=== PATIENT | male | born 1940 | race Caucasian/White ===

== ENCOUNTER 2018-05-10 07:20 | Day surgery (SDC) | payer MEDICARE, OTHER, SELFPAY ==
[2018-05-10] MEDS: PROPARACAINE 0.5% OPHTH SOL 2 DROPS EYE-OP (07:34)
[2018-05-10 07:35] VITALS: BP 129/66; PULSE 69; RESP 16; TEMP 36; O2SAT 99; BMI 23.0
[2018-05-10] MEDS: CATARACT EYE COMPOUND (10 DROPS/SYRINGE) 3 DROPS EYE-OP (07:39)
--- NOTE | 2018-05-10 08:54 | PM.PREOP ---
Pre-operative Note Interval Note Pre-op Check: History & Physical Reviewed by Physician
[2018-05-10] MEDS: TRIAMCINOLONE 50 MG/5 ML VIAL INJ (08:57)
[2018-05-10] MEDS: CHONDROIDTIN/SOD HYALURONATE 1.05 ML SYRINGE INTRAOCULA (08:57)
[2018-05-10] MEDS: LIDOCAINE JELLY 2% 5 ML 1 APPLIC TOP (08:58)
[2018-05-10] MEDS: MOXIFLOXACIN OPHTH DROPS 3 ML BOTTLE 2 DROPS INJ (08:59)
[2018-05-10] MEDS: TETRACAINE 0.5% OPHTH DROPS 15 ML 2 DROPS EYE-RIGHT (08:59)
[2018-05-10] MEDS: PHENYLEPHRINE/LIDOCAINE 3ML VIAL (OR) EYE-OP (09:00)
[2018-05-10] MEDS: BALANCED SALT IRRIG SOLN NO.2 500 ML, EPINEPHrine 1 MG IRR (09:01)
--- NOTE | 2018-05-10 09:10 | P.OP_ITS ---
Operative Date/Time/Diagnoses - Pre-op diagnosis: Cataract Right eye Post-op diagnosis: same Procedure & Clinicians Procedure: Cataract Surgery Same procedure as scheduled: Yes Surgeon: Arpan Welch Anesthesia Type: MAC +/- and Sedation Operative Notes Procedure in detail: Patient brought to the operating suite. Tetracaine drops placed in the right eye. Patient was prepped and draped in sterile manner. Wire lid speculum was placed in the eye. Betadine drops were placed on the eye. This was irrigated. Lidocaine jelly was placed on the eye. A paracentesis port was created with a side-port blade. 0.1 mL 1% preservative free lidocaine was injected into the anterior chamber. The anterior chamber was deepened with viscoelastic. 2.6 mm keratome was used to create a temporal clear corneal incision. Cystotome and Utrata forceps were used to create continuous tear capsulorrhexis. Balanced salt solution was used to hydro dissect the nucleus. The phacoemulsification handpiece was inserted and the nucleus was removed using the stop and chop technique. The irrigation aspiration handpiece was inserted and the remaining cortex was removed. Anterior chamber was deepened with viscoelastic. An Barker ZCB00 intraocular lens with a power of 18.0 was injected into the capsular bag. Irrigation aspiration handpiece was inserted and the remaining viscoelastic was removed. Incision was hydrated with balanced salt solution and found to be leak free with pressure with Weck- Dodie sponges. 0.1 mL Vigamox injected anterior chamber. 0.3 mL Kenalog 10 mg was injected subconjunctivally. Lid speculum was removed. The patient left the operating room in excellent condition. Complications: none Condition: stable Disposition: same day surgery
[2018-05-10 09:14] VITALS: BP 112/64; PULSE 60; RESP 16; TEMP 36.4; O2SAT 97
== END 2018-05-10 09:22 ==
LOC: OR 07:21
PROVIDERS: Family Provider Family Medicine; PCP Family Medicine; Visit Provider Ophthalmology
DX: H25.11 Age-related nuclear cataract, right eye (principal)
CPT/HCPCS: J0171; J2250; J3010; J3301

== ENCOUNTER → 2018-06-06 07:19 | Outpatient (CLI) | payer MEDICARE, OTHER, SELFPAY ==
[2018-06-06 09:22] LABS: Add Manual Diff / Slide Review NO; Basophils Percent Auto 1.2 % (0-2); Eosinophils Percent Auto 6.9 % (2-4); Hematocrit 40.5 % (41-53); Hemoglobin 13.7 g/dL (13.5-17.5); Lymphocytes Percent Auto 31.8 % (25-40); Mean Corpuscular HGB Conc 33.8 % (30-36); Mean Corpuscular Volume 94.8 fL (80-100); Monocytes Percent Auto 7.8 % (3-14); Neutrophils Absolute Auto 3500 /uL (3000-5900); Neutrophils Percent Auto 52.3 % (50-75); Platelet Count 269 X10^3/uL (150-400); Red Blood Cell Count 4.27 X10^6/uL (4.5-5.9); White Blood Cell Count 6.6 X10^3/uL (4.5-11.0)
[2018-06-06 09:52] LABS: Alanine Aminotransferase 29 IU/L (21-72); Albumin 3.8 g/dL (3.5-5.0); Albumin Globulin Ratio 1.4 (1.0-2.8); Alkaline Phosphatase 69 U/L (38-126); Aspartate Aminotransferase 24 IU/L (17-59); BUN Creatinine Ratio 17.3 (6-22); Bilirubin Total 0.6 mg/dL (0.2-1.3); Blood Urea Nitrogen 19 mg/dL (9-20); Calcium 9.2 mg/dL (8.4-10.2); Carbon Dioxide 29 mmol/L (22-32); Chloride 104 mmol/L (98-107); Cholesterol 233 mg/dL (140-199); Estimated Glomerular Filt Rate > 60.0 mL/min (>60); Globulin 2.8 g/dL (1.7-4.1); Glucose 96 mg/dL (80-110); HDL Cholesterol 63 mg/dL (40-60); HEMOLYSIS < 15 (0-50); LDL Cholesterol Calculated 149 mg/dL (<100); Potassium 4.4 mmol/L (3.4-5.1); Sodium 141 mmol/L (137-145); Total Protein 6.6 g/dL (6.3-8.2); Triglycerides 107 mg/dL (35-150)
== END ==
PROVIDERS: PCP Family Medicine; Visit Provider Family Medicine
DX: E78.5 Hyperlipidemia, unspecified (principal); Z12.5 Encounter for screening for malignant neoplasm of prostate; Z91.89 Other specified personal risk factors, not elsewhere classified
CPT/HCPCS: 36415; 80053; 80061; 84153; 85025

== ENCOUNTER 2018-07-19 10:15 | Day surgery (SDC) | payer MEDICARE, OTHER, SELFPAY ==
[2018-07-19] MEDS: PROPARACAINE 0.5% OPHTH SOL 2 DROPS EYE-OP (11:30)
[2018-07-19] MEDS: CATARACT EYE COMPOUND (10 DROPS/SYRINGE) 3 DROPS EYE-OP (11:35)
[2018-07-19 11:39] VITALS: BP 124/60; PULSE 65; RESP 18; TEMP 36.4; O2SAT 99; BMI 23.4
--- NOTE | 2018-07-19 12:26 | P.OP_ITS ---
Operative Date/Time/Diagnoses Pre-op diagnosis: Cataract Left eye Post-op diagnosis: same Procedure & Clinicians Surgeon: Arpan Welch Anesthesia Type: MAC +/- and Sedation Operative Notes Procedure in detail: Patient brought to the operating suite. Tetracaine drops placed in the left eye. Patient was prepped and draped in sterile manner. Wire lid speculum was placed in the eye. Betadine drops were placed on the eye. This was irrigated. Lidocaine jelly was placed on the eye. A paracentesis port was created with a side-port blade. 0.1 mL 1% preservative free lidocaine was injected into the anterior chamber. The anterior chamber was deepened with viscoelastic. 2.6 mm keratome was used to create a temporal clear corneal incision. Cystotome and Utrata forceps were used to create continuous tear capsulorrhexis. Balanced salt solution was used to hydro dissect the nucleus. The phacoemulsification handpiece was inserted and the nucleus was removed using the stop and chop technique. The irrigation aspiration handpiece was inserted and the remaining cortex was removed. Anterior chamber was deepened with viscoelastic. An Barker ZCB00 intraocular lens with a power of 17.5 was injected into the capsular bag. Irrigation aspiration handpiece was inserted and the remaining viscoelastic was removed. Incision was hydrated with balanced salt solution and found to be leak free with pressure with Weck- Dodie sponges. 0.1 mL Vigamox injected anterior chamber. 0.3 mL Kenalog 10 mg was injected subconjunctivally. Lid speculum was removed. The patient left the operating room in excellent condition. Complications: none Condition: stable Disposition: same day surgery
--- NOTE | 2018-07-19 12:26 | P.OP.PRE_ITS ---
Pre-operative Note Interval Note Changes: No
--- NOTE | 2018-07-19 12:26 | PM.PREOP ---
Pre-operative Note Interval Note Changes: No
--- NOTE | 2018-07-19 12:35 | SUR.OPER ---
Supine on eye stretcher, head on extension cradle secured with tape. Arms tucked at sides with blanket. Pillow under knees.
[2018-07-19] MEDS: CHONDROIDTIN/SOD HYALURONATE 1.05 ML SYRINGE INTRAOCULA (12:40)
[2018-07-19] MEDS: LIDOCAINE JELLY 2% 5 ML 1 APPLIC TOP (12:40)
[2018-07-19] MEDS: TETRACAINE 0.5% OPHTH DROPS 15 ML 2 DROPS EYE-LEFT (12:41)
[2018-07-19] MEDS: PHENYLEPHRINE/LIDOCAINE 3ML VIAL (OR) EYE-OP (12:41)
[2018-07-19] MEDS: TRIAMCINOLONE 50 MG/5 ML VIAL INJ (12:41)
[2018-07-19] MEDS: MOXIFLOXACIN OPHTH DROPS 3 ML BOTTLE 2 DROPS INJ (12:41)
[2018-07-19] MEDS: BALANCED SALT IRRIG SOLN NO.2 500 ML, EPINEPHrine 1 MG IRR (12:42)
[2018-07-19 13:05] VITALS: BP 115/61; PULSE 60; RESP 16; TEMP 36.8
== END 2018-07-19 13:20 | disposition home or self-care (01) ==
LOC: OR 10:16
PROVIDERS: Family Provider Family Medicine; PCP Family Medicine; Visit Provider Ophthalmology
DX: H25.12 Age-related nuclear cataract, left eye (principal)
CPT/HCPCS: J0171; J2250; J3010; J3301

== ENCOUNTER 2018-12-05 07:23 | Emergency (ER) | payer MEDICARE, OTHER, SELFPAY ==
--- NOTE | 2018-12-05 | DI.RAD.S_ITS ---
PROCEDURE: XR STERNUM MIN 2V INDICATIONS: fall onto chest TECHNIQUE: 2 views of the sternum acquired. COMPARISON: None. FINDINGS: Bones: There is a subtle minimally depressed fracture involving upper to mid sternum with anterior cortical disruption. No other fracture is seen. No suspicious bony lesions. Soft tissues: Retrosternal soft tissues appear normal. No significant chest wall soft tissue swelling. IMPRESSION: Minimally depressed upper to mid sternal fracture as above. Dictated by: Van Doty M.D. on 12/05/2018 at 9:05 Approved by: Van Doty M.D. on 12/05/2018 at 9:06
[2018-12-05 07:30] VITALS: BP 136/60; PULSE 65; RESP 15; TEMP 36.4; O2SAT 99; BMI 23.4
--- NOTE | 2018-12-05 07:42 | ED.CHESTPAIN ---
HPI - Chest Pain General Chief Complaint: Chest Pain Stated Complaint: CHEST PAIN- FELL ON WOOD PLANK 2 DAYS AGO Time Seen by Provider: 12/05/18 07:38 Source: patient Mode of arrival: ambulatory Limitations: no limitations History of Present Illness HPI narrative: The patient is a 78-year-old male who presents with chest pain. He was chopping wood 2 days ago when he fell onto his sternum. It hurts when he takes deep breath and certain movements. He feels like the pain starts in the center and radiates out when he gets it. He has been taking Aleve few times a day without much relief. MD complaint: chest pain Onset (ago): day(s) (2) Pain location: substernal Exacerbating factors: movement Related Data Previous Rx's Medication Instructions Recorded azelastine 137 mcg (0.1 %) nasal 1 spray NASAL BID PRN #30 ml 10/30/18 spray aerosol oxycodone-acetaminophen [Percocet] 1 tab PO Q4-6H PRN #10 tab 12/05/18 Allergies Allergy/AdvReac Type Severity Reaction Status Date / Time No Known Drug Allergies Allergy Verified 12/05/18 07:30 Review of Systems Review of Systems All systems reviewed & are unremarkable except as noted in HPI and below Constitutional Denies chills, Denies fever(s), Denies lethargy and Denies weakness Cardiovascular Reports chest pain, Denies dyspnea and Denies dyspnea on exertion Respiratory Denies cough, Denies dyspnea, Denies dyspnea on exertion and Denies wheezing Gastrointestinal Gastrointestinal: Denies abdominal pain, Denies change in bowel habits, Denies diarrhea, Denies nausea and Denies vomiting Musculoskeletal Reports as per HPI, Denies back pain, Denies muscle weakness, Denies numbness and Denies tingling Integumentary/Breasts Denies pruritus, Denies erythema, Denies rash and Denies wounds Neurologic Denies numbness, Denies tingling and Denies weakness Allergic/Immunologic Denies wheezing [facility] Medical History Cataract (lens) fragments in eye following cataract surgery, bilateral (Acute) Family History Mother Stroke Social History household members: spouse Smoking Status: Never smoker Exam Initial Vital Signs Initial Vital Signs: Vital Signs Temperature 97.6 F 12/05/18 07:30 Pulse Rate 65 12/05/18 07:30 Respiratory Rate 15 12/05/18 07:30 Blood Pressure 136/60 12/05/18 07:30 Pulse Oximetry 99 12/05/18 07:30 GENERAL: Alert well-appearing elderly male no acute distress HEENT: Head atraumatic,EOMI, pupils reactive CARDIOVASCULAR: Regular rate and rhythm without murmurs, rubs or gallops. Pain 2 sternum reproducible with palpation no contusion no depression no sign of trauma RESPIRATORY: Breath sounds equal bilaterally, no wheezes rales or rhonchi. ABDOMEN: Soft, nontender. Normoactive bowel sounds all 4 quadrants. No guarding or rebound. EXTREMITIES: Normal range of motion, no clubbing or edema. Neurovascularly intact NEUROLOGICAL: Alert and oriented x4.Normal gait and speech. SKIN: Warm, dry, no laceration, no petechiae, no rashes or lesions. Course Orders Ordered: ED Orders 12/05/18 07:43 XR chest 1V Stat Vital Signs - 8 hr 12/05/18 07:30 Temperature 97.6 F Pulse Rate 65 Respiratory Rate 15 Blood Pressure 136/60 Pulse Oximetry 99 MDM - Chest Pain Imaging Data Chest x-ray: Radiologist's impression: PROCEDURE: XR CHEST 1V INDICATIONS: fall on sternum Wednesday pain TECHNIQUE: One view of the chest was acquired. COMPARISON: [facility], CT, THORAX WITHOUT CONTRAST, 01/06/2017, 9:00. [facility], CR, XR STERNUM MIN 2V, 12/05/2018, 8:03. FINDINGS: Surgical changes and devices: None. Lungs and pleura: No pleural effusions or pneumothorax. No focal infiltrates are seen. A calcified granuloma can be seen within the right upper lobe, as before. Mediastinum: Mediastinal contours appear normal. Heart size is normal. Atherosclerotic calcification of the aortic arch is noted. Bones and chest wall: No suspicious bony lesions. Overlying soft tissues appear unremarkable. IMPRESSION: No significant, acute abnormality can be seen on this single view chest study. Negative for pneumothorax. Incidental note is made of: Prior granulomatous exposure. Dictated by: Storm Downs M.D. on 12/05/2018 at 7:47 XR sternum: Radiologist's impression: PROCEDURE: XR STERNUM MIN 2V INDICATIONS: fall onto chest TECHNIQUE: 2 views of the sternum acquired. COMPARISON: None. FINDINGS: Bones: There is a subtle minimally depressed fracture involving upper to mid sternum with anterior cortical disruption. No other fracture is seen. No suspicious bony lesions. Soft tissues: Retrosternal soft tissues appear normal. No significant chest wall soft tissue swelling. IMPRESSION: Minimally depressed upper to mid sternal fracture as above. Dictated by: Van Doty M.D. on 12/05/2018 at 9:05 MDM Narrative Medical decision making narrative: Patient has minimally displaced sternal fracture. He is given incentive spirometer by Respiratory. All questions addressed. Discharge Plan Departure Patient Disposition: Home Clinical Impression: Closed fracture of sternum Instructions: DI for Sternum Fracture Activity Restrictions/Additional Instructions: *You have been diagnosed with a sternum fracture *What to do: This will take 4-6 weeks to heal. Recommend pillow for splinting Use incentive spirometer 10 times a prevent pneumonia *Continue to take medications as directed -Percocet 1 tablet every 6 hr if needed for severe pain -Motrin 600 mg every 6-8 hours if needed for [id number] pain *Follow up with your primary care provider in 2-3 days *Return to ER if you should have shortness of breath, increased pain or any new, worsening or concerning symptoms CONTROLLED SUBSTANCE DISCHARGE (Narcotoic/benzodiazepine/Flexeril/Phenergan) 1. You have been prescribed narcotic medications, it does have acetaminophen/Tylenol/paracetamol in it so do not take extra Tylenol or Tylenol containing products 2. Please understand that we cannot provide further refills of narcotics, benzodiazepines or controlled substances through the ED and her pain management will need to be through your provider. 3. While on these medications you cannot drive or operate heavy machinery. 4. You cannot sign legal documents or perform any duties such as this. 5. As long as you're taking opiate pain medications he should also be taking a stool softener such as Colace, Dulcolax, MiraLAX or prune juice, to help avoid constipation. Prescriptions: New oxycodone-acetaminophen [Percocet] 5-325 mg tablet 1 tab PO Q4-6H PRN (Reason: pain) Qty: 10 RF: 0 No Action azelastine 137 mcg (0.1 %) aerosol,spray 1 spray NASAL BID PRN (Reason: allergic rhinitis) Qty: 30 RF: 5 Referrals: Annabella Mauro DO [Primary Care Provider] -
[2018-12-05 08:00] VITALS: BP 118/55; PULSE 65; RESP 18; O2SAT 98
[2018-12-05 08:30] VITALS: BP 121/56; PULSE 58; RESP 16; O2SAT 98
[2018-12-05 09:00] VITALS: BP 126/60; PULSE 58; RESP 14; O2SAT 98
== END 2018-12-05 09:53 | disposition home or self-care (01) ==
PROVIDERS: Emergency Provider Emergency Medicine; PCP Family Medicine
DX: S22.20XA Unspecified fracture of sternum, initial encounter for closed fracture (principal); W19.XXXA Unspecified fall, initial encounter
CPT/HCPCS: 71045; 71120; 93005; 99283; 99284

== ENCOUNTER 2019-10-26 12:44 | Emergency (ER) | payer MEDICARE, OTHER, SELFPAY ==
[2019-10-26 12:52] VITALS: BP 143/60; PULSE 65; RESP 16; TEMP 36.6; O2SAT 100; BMI 22.8
--- NOTE | 2019-10-26 12:56 | DI.RAD.S_ITS ---
PROCEDURE: XR ANKLE RT MIN 3V INDICATIONS: Right ankle pain TECHNIQUE: 3 views of the ankle were acquired. COMPARISON: None. FINDINGS: Bones: Well-corticated fracture fragments are seen involving the lateral malleolus. No acute appearing fractures or dislocations. Ankle mortise is normally aligned. No suspicious bony lesions. The talar dome demonstrates no sandra abnormality. Soft tissues: No tibiotalar joint effusion. Achilles tendon appears normal. IMPRESSION: No definite, acute fractures are seen. Remote appearing fracture fragments are seen adjacent to the lateral malleolus. If there is point tenderness (or other clinical suspicion for a fracture not seen on these images) please consider a dedicated CT for further evaluation. Dictated by: Storm Downs M.D. on 10/26/2019 at 12:35 Approved by: Storm Downs M.D. on 10/26/2019 at 12:36
--- NOTE | 2019-10-26 13:01 | ED.LOWEXIN ---
HPI - Extremity Injury (Lower) <LEYDA Lim - Last Filed: 10/26/19 14:11> General Chief Complaint: Extremity Injury, Lower Stated Complaint: twisted right ankle Time Seen by Provider: 10/26/19 13:01 Source: patient Mode of arrival: Ambulatory Limitations: no limitations History of Present Illness HPI Narrative: The patient is an 79-year-old male nonsmoker with history of left ankle fracture presents with a chief complaint of right ankle pain. He states he stepped down off a step all quickly and his ankle rolled in. He states he took 3 ibuprofen. He complains of continued pain so he came to the emergency department for an x-ray. He states he is able to ambulate on it and denies any other trauma. He denies any popping or cracking sensation. Related Data Previous Rx's Medication Instructions Recorded azelastine 137 mcg (0.1 %) nasal 1 spray NASAL BID PRN #30 ml 10/30/18 spray aerosol oxycodone-acetaminophen [Percocet] 1 tab PO Q4-6H PRN #10 tab 12/05/18 Allergies Allergy/AdvReac Type Severity Reaction Status Date / Time No Known Drug Allergies Allergy Verified 10/26/19 12:52 Review of Systems <LEYDA Lim - Last Filed: 10/26/19 14:11> Review of Systems Narrative: GENERAL: Denies chills, fatigue, malaise, fever, sweats. HEENT: Denies sinus pain, ear pain, sore throat, difficulty swallowing, dizziness. RESPIRATORY: Denies dyspnea, cough, wheezing, hemoptysis, sputum. CARDIOVASCULAR: Denies chest pain, palpitations, orthopnea, edema, GASTROINTESTINAL: Denies nausea, vomiting, abdominal pain, diarrhea, constipation, melena. : Denies dysuria, frequency, incontinence, hematuria, urinary retention. MUSCULOSKELETAL: See HPI SKIN: Denies rash, skin lesions, or other NEUROLOGIC: Denies weakness, headache, numbness, change in speech, confusion, seizures, incoordination. PSYCHIATRIC: No concerning psychosocial issues. 12 point review of systems is negative except for those stated above Patient History <LEYDA Lim - Last Filed: 10/26/19 14:11> Medical History Cataract (lens) fragments in eye following cataract surgery, bilateral (Acute) Family History Mother Stroke Social History household members: spouse Smoking Status: Never smoker alcohol intake frequency: holidays/special occasions only Substance Use Type: does not use Exam <LEYDA Lmi - Last Filed: 10/26/19 14:11> Narrative Exam Narrative: GENERAL: This is a well-nourished, well-developed patient, in no acute distress HEAD: Atraumatic. Normocephalic. No temporal or scalp tenderness. EYES: Pupils equal round and reactive. Extraocular motions intact. No scleral icterus. No injection or drainage. ENT: Nose without bleeding, purulent drainage or septal hematoma. Throat without erythema, tonsillar hypertrophy or exudate. Uvula midline. Airway patent. NECK: Trachea midline. No JVD or lymphadenopathy. Supple, nontender, no meninwithout murmurs, gallops, or rubs. RESPIRATORY: No cough. No increased respiratory effort. No accessory muscle use. EXTREMITIES: Generalized pain to palpation right lateral malleolus, able to flex and extend right foot. Weight bearing well right foot and ankle. Positive pedal pulses right foot. BACK: Nontender without deformity or crepitance. No flank tenderness. NEURO: AOx3. SKIN: No rash or erythema or ecchymosis noted on visible skin. No visual abnormality right ankle. Initial Vital Signs Initial Vital Signs: Vital Signs Temperature 97.8 F 10/26/19 12:52 Pulse Rate 65 10/26/19 12:52 Respiratory Rate 16 10/26/19 12:52 Blood Pressure 143/60 H 10/26/19 12:52 Pulse Oximetry 100 10/26/19 12:52 <Tatiana Batres MD - Last Filed: 10/26/19 15:39> Initial Vital Signs Initial Vital Signs: Vital Signs Temperature 97.8 F 10/26/19 12:52 Pulse Rate 65 10/26/19 12:52 Respiratory Rate 16 10/26/19 12:52 Blood Pressure 143/60 H 10/26/19 12:52 Pulse Oximetry 100 10/26/19 12:52 Course <LEYDA Lim - Last Filed: 10/26/19 14:11> Orders Ordered: ED Orders 10/26/19 12:56 XR ankle RT min 3V Stat Vital Signs Vital signs: Vital Signs - 8 hr 10/26/19 12:52 10/26/19 14:24 Temperature 97.8 F 98.2 F Pulse Rate 65 68 Respiratory Rate 16 18 Blood Pressure 143/60 H Pulse Oximetry 100 98 <Tatiana Batres MD - Last Filed: 10/26/19 15:39> Orders Ordered: ED Orders 10/26/19 12:56 XR ankle RT min 3V Stat Vital Signs Vital signs: Vital Signs - 8 hr 10/26/19 12:52 10/26/19 14:24 Temperature 97.8 F 98.2 F Pulse Rate 65 68 Respiratory Rate 16 18 Blood Pressure 143/60 H Pulse Oximetry 100 98 MDM - Extremity Injury (Lower) <LEYDA Lim - Last Filed: 10/26/19 14:11> Imaging Data Right ankle x-ray: Radiologist's impression: Aramis Varghese [place] 79 M [address] [place] [address] XRay Report Signed Patient: Aramis Varghese LMR#: [id number] : 9Acct:[id number] Age/Sex: 79 / MDate of Service: 10/26/19 Loc: ED Accession Number: [id number] Procedure: XR ankle RT min 3V Ordering Provider: Tatiana Batres MD PROCEDURE: XR ANKLE RT MIN 3V INDICATIONS: Right ankle pain TECHNIQUE: 3 views of the ankle were acquired. COMPARISON: None. FINDINGS: Bones: Well-corticated fracture fragments are seen involving the lateral malleolus. No acute appearing fractures or dislocations. Ankle mortise is normally aligned. No suspicious bony lesions. The talar dome demonstrates no sandra abnormality. Soft tissues: No tibiotalar joint effusion. Achilles tendon appears normal. IMPRESSION: No definite, acute fractures are seen. Remote appearing fracture fragments are seen adjacent to the lateral malleolus. If there is point tenderness (or other clinical suspicion for a fracture not seen on these images) please consider a dedicated CT for further evaluation. Dictated by: Storm Downs M.D. on 10/26/2019 at 12:35 Approved by: Storm Downs M.D. on 10/26/2019 at 12:36 MDM Narrative Medical decision making narrative: Patient is an 79-year-old male who presents with a chief complaint of right ankle pain after twisting his ankle repair today. He is neurovascularly intact throughout his stay in the emergency department. X-ray shows well corticated fracture fragments but no acute fractures. I discussed this with the patient, he does not recall any specific incidents with his right ankle. However he does not want any further imaging today and declines a CT scan for further evaluation. I encouraged rest ice compression elevation as well as [id number] pain medications as needed and able. Encourage PCP follow-up the next few days, patient states that he will reconsider imaging if he continues to have issues. Patient has no questions or concerns upon discharge and states understanding of return precautions as well as follow-up care. Discharge Plan Departure Patient Disposition: Home Clinical Impression: Abrasion Acute ankle pain Qualifiers: Laterality: right Qualified Code(s): M25.571 - Pain in right ankle and joints of right foot Discharge Date/Time: 10/26/19 14:25 Instructions: DI for Ankle Sprain, How To Perform RICE (Rest, Ice, Compress, Elevate), DI for Abrasion, DI for Ankle Pain Activity Restrictions/Additional Instructions: As I discussed, your x-ray shows no acute fracture. This does not rule out a soft tissue injury such as a ligament or tendon injury. It is important that you follow up with primary care provider, especially if worsening or no improvement. There can be fractures that did not show up on initial x-ray. As discussed, there is concern for old chip fracture. You have elected to not pursue further imaging today. Please use [id number] medications and rest ice compression elevation. Please follow up with primary care provider. Please come back to the emergency department for any acute concerns. Prescriptions: No Action azelastine 137 mcg (0.1 %) aerosol,spray 1 spray NASAL BID PRN (Reason: allergic rhinitis) Qty: 30 RF: 5 oxycodone-acetaminophen [Percocet] 5-325 mg tablet 1 tab PO Q4-6H PRN (Reason: pain) Qty: 10 RF: 0 Referrals: Annabella Mauro DO [Primary Care Provider] -
[2019-10-26 14:24] VITALS: PULSE 68; RESP 18; TEMP 36.8; O2SAT 98
== END 2019-10-26 14:25 | disposition home or self-care (01) ==
PROVIDERS: Emergency Provider Nurse Practitioner Family; PCP Family Medicine
DX: S90.511A Abrasion, right ankle, initial encounter (principal); M25.571 Pain in right ankle and joints of right foot
CPT/HCPCS: 73610; 99282; 99283

== ENCOUNTER → 2020-02-05 09:36 | Outpatient (CLI) | payer MEDICARE, OTHER, SELFPAY ==
[2020-02-05 11:12] LABS: Add Manual Diff / Slide Review NO; Basophils Absolute Auto 100 /uL (0-100); Eosinophils Absolute Auto 400 /uL (0-450); Eosinophils Percent Auto 5.4 % (2-4); Hematocrit 42.8 % (41-53); Hemoglobin 14.6 g/dL (13.5-17.5); Lymphocytes Absolute Auto 2900 /uL (1100-4500); Lymphocytes Percent Auto 35.3 % (25-40); Mean Corpuscular HGB Conc 34.1 % (30-36); Mean Corpuscular Hemoglobin 32.3 PG (26-34); Mean Corpuscular Volume 94.8 fL (80-100); Monocytes Absolute Auto 600 /uL (0-900); Monocytes Percent Auto 7.8 % (3-14); Neutrophils Absolute Auto 4100 /uL (1500-7000); Neutrophils Percent Auto 50.5 % (50-75); Platelet Count 286 X10^3/uL (150-400); Red Blood Cell Count 4.52 X10^6/uL (4.5-5.9); Red Cell Distribution Width 13.8 % (11.6-14.8); White Blood Cell Count 8.1 X10^3/uL (4.5-11.0)
[2020-02-05 11:23] LABS: Alanine Aminotransferase 23 IU/L (<50); Albumin 4.3 g/dL (3.5-5.0); Albumin Globulin Ratio 1.5 (1.0-2.8); Alkaline Phosphatase 68 U/L (38-126); Aspartate Aminotransferase 28 IU/L (17-59); Bilirubin Total 0.6 mg/dL (0.2-1.3); Blood Urea Nitrogen 20 mg/dL (9-20); Calcium 9.6 mg/dL (8.4-10.2); Carbon Dioxide 26 mmol/L (22-32); Chloride 104 mmol/L (98-107); Cholesterol 160 mg/dL (140-199); Estimated Glomerular Filt Rate > 60.0 mL/min (>60); Globulin 2.9 g/dL (1.7-4.1); Glucose 115 mg/dL (80-110); HDL Cholesterol 64 mg/dL (40-60); HEMOLYSIS < 15 (0-50); LDL Cholesterol Calculated 68 mg/dL (<100); Potassium 4.8 mmol/L (3.4-5.1); Sodium 139 mmol/L (137-145); Total Protein 7.2 g/dL (6.3-8.2); Triglycerides 142 mg/dL (35-150)
[2020-02-05 11:52] LABS: Prostate Specific Antigen 4.03 ng/mL (0.10-4.00)
== END ==
PROVIDERS: PCP Family Medicine; Referring Provider Family Medicine; Visit Provider Family Medicine
DX: Z12.5 Encounter for screening for malignant neoplasm of prostate (principal); R06.02 Shortness of breath; E78.5 Hyperlipidemia, unspecified
CPT/HCPCS: 36415; 80053; 80061; 84153; 85025; G0103

== ENCOUNTER → 2021-02-13 09:33 | Outpatient (CLI) | payer MEDICARE, SELFPAY ==
[2021-02-13 11:18] LABS: COVID19 -Nasal RAPID Negative (Negative)
== END ==
PROVIDERS: PCP Family Medicine; Visit Provider Specialist
DX: Z20.822 Contact with and (suspected) exposure to COVID-19 (principal)
CPT/HCPCS: 87635; C9803

== ENCOUNTER 2021-02-14 08:17 | Day surgery (SDC) | payer MEDICARE, OTHER, SELFPAY ==
[2021-02-14] VITALS (10 sets, daily range): BP systolic 110–128; BP diastolic 64–85; PULSE 69–100; RESP 10–18; TEMP 36.4–36.7; O2SAT 94–99; BMI 21.7
--- NOTE | 2021-02-14 | PATH_ITS ---
[facility] Accession Number: [id number] . 01 Material submitted: . PART A: colon - CECUM POLYP PART B: colon - 70CM COLON POLYP PART C: colon - 20CM COLON POLYP . 01 Clinical history: . DX COLONOSCOPY . 02 Diagnosis: A. Cecal Polyp, Biopsy: Tubular adenoma. . B. Colon Polyp at 70 cm, Biopsy: Tubular adenoma. . C. Colon Polyp at 20 cm, Biopsy: Tubular adenoma. MRV 02/19/2021 1046 Local . 02 Electronically signed: . Jerardo Angel MD, PhD, Pathologist NPI- [id number] . 01 Gross description: . Part A: CECUM POLYP: Received in formalin is 1 fragment(s) of coronado, soft tissue measuring 0.7 x 0.6 x 0.5 cm submitted entirely in 1 cassette(s) Part B: 70CM COLON POLYP: Received in formalin are 3 fragment(s) of coronado, soft tissue measuring 0.1 x 0.1 x 0.1 cm to 0.3 x 0.2 x 0.2 cm submitted entirely in 1 cassette(s) Part C: 20CM COLON POLYP: Received in formalin is 1 fragment(s) of coronado, soft tissue measuring 0.5 x 0.3 x 0.3 cm submitted entirely in 1 cassette(s) /DOUG 02/18/2021 0030 Local . 02 Pathologist provided ICD-10: D12.0, D12.6 . 02 CPT . 473859, 375887, [id number] Performed at: [address], [place], [place] [id number] MD Cliff Ohara MD Phone: [phone] Performed at: [address] [place] [id number] [place] [id number] MD Marta Srinivasan MD Phone: [phone]
[2021-02-14] MEDS: LACTATED RINGERS 1,000 ML 200 ML IV (08:00)
--- NOTE | 2021-02-14 09:19 | PM.HP.1 ---
History of Present Illness History of Present Illness Date Patient Seen: 02/14/21 Time Patient Seen: 09:20 Chief complaint: DX COLONOSCOPY Narrative: Patient here for screening colonoscopy. He has a history of polyps. He does not remember when his last exam was. Patient History Medical History Cataract (lens) fragments in eye following cataract surgery, bilateral Family & Social History Family History Mother Stroke Social History: household members spouse Tobacco & Substance use: Smoking Status Never smoker alcohol intake frequency holiday/special occasion Substance Use Type does not use Meds Home Medications and Allergies Allergies Allergy/AdvReac Type Severity Reaction Status Date / Time No Known Drug Allergies Allergy Verified 10/26/19 12:52 Review of Systems Review of Systems Narrative: Marked decreased hearing right ear ROS: Yes All systems reviewed with the patient and are negative except as otherwise documented Exam Vital Signs (past 8 hours): - 02/14/21 08:35 Temperature 98.0 F Pulse Rate 100 H Respiratory Rate 18 Blood Pressure 128/73 Pulse Oximetry 99 Oxygen Delivery Method Room Air Oxygen Flow Rate 0 Narrative Exam Narrative: Pleasant cooperative patient no apparent distress. Lungs are clear to auscultation. No rales or rhonchi. Heart regular rate and rhythm no murmur gallop. Abdomen is soft nontender without mass. No obvious hernias. Patient is alert and oriented x3. Assessment & Plan Assessment & Plan narrative: The patient for a screening colonoscopy. I have discussed the procedure with them. Risks of bleeding, perforation which would necessitate major operation, failure to find remove all lesions, the potential tattoo were all discussed. All questions were answered. They wished to proceed. Quality [facility] - Admit Advanced Care Plan / Current Medications Measures: #47 ? Advanced Care Plan Clinician documentation instruction: document at admission. [] I confirmed that the patient's Advance Care Plan is present, code status is documented, or surrogate decision maker is listed in the patient?s medical record. [SATISFIES [facility] PERFORMANCE] If Yes, Stop Here [] The patient?s Advance Care plan is not present because: (select) [MIPS PERFORMANCE EXCEPTION/EXCLUSION] [] I confirmed today that the patient does not wish or was not able to name a surrogate decision maker or provide an Advance Care Plan. [] Hospice care is currently being provided or has been provided this calendar year [] I did NOT confirm today the presence of an Advance Care Plan or surrogate decision maker documented within the patient's medical record. [DOES NOT SATISFY MIPS PERFORMANCE] #130 - Documentation of Current Medications in the Medical Record Clinician documentation instruction: use macro the first time you see a patient. [] I have utilized all available immediate resources to obtain, update, or review the patient?s current medications. [SATISFIES MIPS PERFORMANCE] If Yes, Stop Here [] The patient is not eligible for medication reconciliation; the patient is in an emergent medical situation where delaying treatment would jeopardize the patient?s health. [MIPS PERFORMANCE EXCEPTION/EXCLUSION] [] I did NOT confirm, update or review the patient's current list of medications today. [DOES NOT SATISFY MIPS PERFORMANCE] MIPS - CL Central Venous Catheter Placement Measure: #76 ? Prevention of Central Venous Catheter (CVC) ? Related Bloodstream Infection Clinician documentation instruction: use macro every time you place a central line. [] All elements of Maximal Sterile Barrier Technique, including hand hygiene, skin prep, and sterile ultrasound technique (if used) were followed. [SATISFIES MIPS PERFORMANCE] If Yes, Stop Here [] If ?No?, the medical reason all elements were NOT used for medical reason [] (ex. emergent condition). [] Maximal Sterile Barrier Technique was not followed, no reason provided [DOES NOT SATISFY MIPS PERFORMANCE] MIPS - DC Heart Failure Measures: #5 - Heart Failure (HF): Angiotensin-Converting Enzyme (TOMAS) Inhibitor or Angiotensin Receptor Mendez (ARB) Therapy for Left Ventricular Systolic Dysfunction (LVSD) and #8 - Heart Failure (HF): Beta-Mendez Therapy for Left Ventricular Systolic Dysfunction (LVSD) Clinician documentation instruction: use macro at every CHF discharge. [] The patient has current or prior documentation of left ventricular ejection fraction (LVEF) less than 40%, or moderate or severely depressed left ventricular systolic function. Answer both: [SATISFIES MIPS PERFORMANCE] [] The patient was prescribed or already taking an Angiotensin-Converting Enzyme (TOMAS) Inhibitor, or Angiotensin Receptor Mendez (ARB). [] The patient was prescribed or already taking a beta-mendez. If Yes to Both, Stop Here [] Patient not prescribed/taking: [MIPS PERFORMANCE EXCEPTION/EXCLUSION] [] TOMAS or ARB for medical/patient/system reason(s) including [] (ex. allergy, intolerance, contraindication) [] Beta-mendez for medical/patient/system reason(s) including [] (ex. allergy, intolerance, contraindication) [] Patient not prescribed/taking: [DOES NOT SATISFY MIPS PERFORMANCE] [] TOMAS or ARB, no reason given [] Beta-mendez, no reason given
--- NOTE | 2021-02-14 09:22 | PM.PREOP ---
Pre-operative Note COVID-19 COVID-19 status: Negative Result date/Date tested (Pos, Neg/Pending): 02/13/21 Interval Note History & Physical reviewed/Exam performed by Physician: Yes Changes to H&P: No ASA Class (for procedural sedation): I
[2021-02-14] MEDS: MIDAZOLAM 5 MG/5 ML VIAL IV (09:32)
[2021-02-14] MEDS: fentaNYL 250 MCG/5 ML INJ IV (09:34)
--- NOTE | 2021-02-14 09:56 | PM.OP.ENDO ---
Operative Date/Time/Diagnoses Date of procedure: 02/14/21 Time of procedure: 09:56 Pre-op diagnosis: Screening exam. Last colonoscopy 6 years ago. Personal history of polyps. Post-op diagnosis: same Procedure & Clinicians Study performed: Colonoscopy with hot snare polypectomy and cold biopsy Same procedure as scheduled: Yes Indications: Screening in an increased risk group. Surgeon: Leodan Bliss Procedure Notes SCOAP/Timeout: Performed Procedure in detail: The patient was placed in the left lateral decubitus position and underwent IV sedation directed by the surgeon consisting of fentanyl and Versed. Digital exam was remarkable for an enlarged firm prostate and a lax sphincter.. The scope was inserted and advanced through the rectum into the sigmoid, descending, transverse, and ascending colon. Patient was noted to have diverticulosis.. The cecum was reached identified by the ileocecal valve and the appendiceal opening. There was a polyp in the cecum which I snared and completely removed. The scope was gradually brought out. additional Polyps were found at 70 cm and 20 cm from the anal verge. These were both very small lesions. There were removed with biopsy forceps.. The scope ultimately was retroflexed in the rectum. The appearance was normal. The scope was removed and the patient tolerated the procedure well. Prep was very good. Patient was noted to go in and out of sinus rhythm. The alternate rhythm looked like a slow atrial flutter. I noted some irregularity in his cardiac exam preoperatively. For the most part it was regular however. Scope withdrawal time: 7-1/2 minutes(9.5 total) Sedation minutes: 28 Findings: diverticulosis and polyp Specimen(s): other (Polyps) Complications: none Post-procedure Recommendations: Colonscopy in 5 years (If in good health) Follow up: as needed Disposition: PACU
--- NOTE | 2021-02-14 11:03 | SUR.PHASEI ---
1030 RECEIVED REPORT FROM KIRK ARREDONDO, PT IS RESTING QUIETLY, EASILY WAKENS, DENIES ANY PAIN OR DISCOMFORT, DR ANDRADE IN TO SEE EKG, WILL CONTINUE TO MONITOR AND WILL GET IN TOUCH WITH PTS PRIMARY CARE
--- NOTE | 2021-02-14 11:31 | SUR.PHASEI ---
DR ANDRADE SPOKE WITH DR RICO REGARDING PT AND AFLUTTER, DR CHACON OFFICE WILL CALL WITH APPOINTMENT DATE AND TIME, INSTRUCTIONS REVIEWED WITH PT AND , PT WITH STABLE VITAL SIGNS, DENIES ANY PAIN OR DISCOMFORT, ABDOMEN REMAINS SOFT, TOLERATING PO FLUIDS, PT D/C HOME.
== END 2021-02-14 10:30 | disposition home or self-care (01) ==
PROVIDERS: PCP Family Medicine; Referring Provider Specialist; Visit Provider Specialist
PROC: 0DJD8ZZ Inspection of Lower Intestinal Tract, Via Natural or Artificial Opening Endoscopic (ICD-10-PCS; CPT 45378; principal; 2021-02-14 09:15)
DX: Z12.11 Encounter for screening for malignant neoplasm of colon (principal); Z86.010 Personal history of colon polyps; I49.9 Cardiac arrhythmia, unspecified; K57.30 Diverticulosis of large intestine without perforation or abscess without bleeding; D12.0 Benign neoplasm of cecum; D12.6 Benign neoplasm of colon, unspecified
CPT/HCPCS: 45385; 45380; 93005; 93010; 99152; 99153; J2250; J3010

== ENCOUNTER → 2021-02-21 12:43 | Outpatient (CLI) | payer MEDICARE, OTHER, SELFPAY ==
[2021-02-21 13:33] LABS: Add Manual Diff / Slide Review NO; Basophils Absolute Auto 100 /uL (0-100); Basophils Percent Auto 1.2 % (0-2); Eosinophils Absolute Auto 500 /uL (0-450); Eosinophils Percent Auto 7.7 % (2-4); Hematocrit 42.8 % (41-53); Hemoglobin 14.6 g/dL (13.5-17.5); Lymphocytes Absolute Auto 2200 /uL (1100-4500); Lymphocytes Percent Auto 32.5 % (25-40); Mean Corpuscular HGB Conc 34.2 % (30-36); Mean Corpuscular Hemoglobin 33.1 PG (26-34); Mean Corpuscular Volume 96.8 fL (80-100); Monocytes Absolute Auto 600 /uL (0-900); Monocytes Percent Auto 8.3 % (3-14); Neutrophils Absolute Auto 3500 /uL (1500-7000); Neutrophils Percent Auto 50.3 % (50-75); Platelet Count 262 X10^3/uL (150-400); Red Blood Cell Count 4.42 X10^6/uL (4.5-5.9); Red Cell Distribution Width 13.8 % (11.6-14.8); White Blood Cell Count 6.9 X10^3/uL (4.5-11.0)
[2021-02-21 14:03] LABS: Alanine Aminotransferase 21 IU/L (<50); Albumin 4.5 g/dL (3.5-5.0); Albumin Globulin Ratio 1.8 (1.0-2.8); Alkaline Phosphatase 63 U/L (38-126); Aspartate Aminotransferase 29 IU/L (17-59); BUN Creatinine Ratio 21.8 (6-22); Bilirubin Total 0.5 mg/dL (0.2-1.3); Blood Urea Nitrogen 22 mg/dL (9-20); Calcium 10.1 mg/dL (8.4-10.2); Carbon Dioxide 29 mmol/L (22-32); Chloride 101 mmol/L (98-107); Cholesterol 153 mg/dL (140-199); Estimated Glomerular Filt Rate > 60.0 mL/min (>60); Globulin 2.5 g/dL (1.7-4.1); Glucose 104 mg/dL (80-110); HDL Cholesterol 70 mg/dL (40-60); HEMOLYSIS < 15 (0-50); LDL Cholesterol Calculated 65 mg/dL (<100); Potassium 4.5 mmol/L (3.4-5.1); Sodium 138 mmol/L (137-145); Triglycerides 90 mg/dL (35-150)
[2021-02-21 14:29] LABS: Prostate Specific Antigen Scrn 4.18 ng/mL (0.1-4.0)
== END ==
PROVIDERS: PCP Family Medicine; Referring Provider Family Medicine; Visit Provider Family Medicine
DX: E78.5 Hyperlipidemia, unspecified (principal); Z12.5 Encounter for screening for malignant neoplasm of prostate; I48.92 Unspecified atrial flutter
CPT/HCPCS: 36415; 80053; 80061; 85025; G0103

== ENCOUNTER → 2021-03-17 07:45 | Outpatient (CLI) | payer MEDICARE, OTHER, SELFPAY ==
--- NOTE | 2021-03-17 07:48 | DI.ECHO.S_ITS ---
[facility]---------+ [facility] +---------+ : : [address] : [place] : : : : [id number] : : : : Phone: [phone] Echocardiogram Report + + :Name: SCOOBY AMOR Study Date: 03/17/2021 Height: 72 in : :[facility] ReadingLocation: Weight: 169 lb : : Gender: Male BSA: 2.0 m2 : :: 1940 Age: 80 yrs BP: 138/83 mmHg: :Reason For Study: Atrial flutter : :Ordering Physician: TRISHA, : :CRISTIAN Performed By: Khang Wisdom : :Referring: CRISTIAN RICO : + + Interpretation Summary The patient was in atrial flutter with heart rates between 70-100 bpm during the exam. Normal left ventricle size with ejection fraction 55-60%. Both atria are normal in size. Mild mitral regurgitation. Mild to moderate tricuspid regurgitation. Mildly enlarged ascending aorta. Procedure: A two-dimensional transthoracic echocardiogram with color flow and Doppler was performed. The study quality was technically adequate. There is no prior echocardiogram noted for this patient. The patient was in atrial flutter with heart rates between 70-100 bpm during the exam. Left Ventricle: The left ventricle is normal in size and wall thickness. The ejection fraction is estimated to be 55-60%. There are no focal wall motion abnormalities. Diastolic function could not be accurately assessed due to unobtainable data. Right Ventricle: The right ventricle is normal in size and function. Atria: Both atria are normal in size. There is no Doppler evidence for an interatrial shunt. Mitral Valve: The mitral valve is normal in structure and function. There is mild mitral regurgitation. Aortic Valve: The aortic valve is normal in structure and function. There is trace aortic regurgitation. Tricuspid Valve: The tricuspid valve is normal in structure and function. There is mild to moderate tricuspid regurgitation. The right ventricular systolic pressure is estimated to be at least 27 mmHg based on an estimated right atrial pressure of 3 mm Hg. Pulmonic Valve: The pulmonic valve is not well seen, but is grossly normal. There is mild pulmonic regurgitation. Great Vessels: The aortic root is normal size. The ascending aorta is mildly enlarged. The IVC is of normal diameter and collapses greater than 50% with a sniff. This suggests a low right atrial pressure of 3 mm Hg. Pericardium/ Pleura There is no pericardial effusion. There is no pleural effusion. MMode/2D Measurements & Calculations LVIDd: 4.4 cm LVOT diam: 2.0 cm LVIDs: 3.2 cm Ao root diam: 3.4 cm FS: 27.3 % asc Aorta Diam: 3.7 cm IVSd: 1.0 cm LVPWd: 0.89 cm LV rothman. diameter/BSA (cm/m^2): 2.2 LV sys. diameter/BSA (cm/m^2): 1.6 LA A2 area: 13.2 cm2 RA area: 15.5 cm2 LA A4 area: 12.4 cm2 IVC diam: 1.9 cm LA length (vol): 4.0 cm LA vol: 34.9 ml LA vol index: 17.6 ml/m2 RVD1 (basal): 3.1 cm Doppler Measurements & Calculations Ao V2 max: 112.8 cm/sec LVOT Max Benedict: 67.8 cm/sec Ao V2 mean: 75.6 cm/sec LV V1 max P.8 mmHg Ao max P.1 mmHg LV V1 VTI: 14.5 cm Ao mean P.6 mmHg TEE(I,D): 2.1 cm2 Ao V2 VTI: 21.4 cm TEE(V,D): 1.9 cm2 sev ratio: 0.68 TEE indexed to BSA (cm^2/m^2): 1.1 MV E max benedict: 104.9 cm/sec TR max benedict: 243.5 cm/sec MV A max benedict: 55.0 cm/sec TR max P.7 mmHg MV E/A: 1.9 PA V2 max: 89.7 cm/sec MV dec time: 0.14 sec PA V2 mean: 59.5 cm/sec PA mean P.6 mmHg PA pr(Accel): 51.0 mmHg MR VTI: 162.6 cm SV(LVOT): 45.5 ml Electronically signed by: Rae Galeana on Reading Physician:03/17/2021 12:24 PM
== END ==
PROVIDERS: PCP Family Medicine; Referring Provider Family Medicine; Visit Provider Family Medicine
DX: I48.92 Unspecified atrial flutter (principal); I08.1 Rheumatic disorders of both mitral and tricuspid valves; I77.89 Other specified disorders of arteries and arterioles; Z20.822 Contact with and (suspected) exposure to COVID-19
CPT/HCPCS: 87635; 93306; C9803

== ENCOUNTER → 2021-03-17 09:11 | Outpatient (CLI) | payer MEDICARE, OTHER, SELFPAY ==
[2021-03-17 12:20] LABS: COVID19 -Nasal RAPID Negative (Negative)
== END ==
PROVIDERS: PCP Family Medicine; Visit Provider Student in an Organized Health Care Education/Training Program
DX: Z20.822 Contact with and (suspected) exposure to COVID-19 (principal)
CPT/HCPCS: 87635

== ENCOUNTER → 2021-03-18 07:58 | Outpatient (CLI) | payer MEDICARE, OTHER, SELFPAY ==
--- NOTE | 2021-03-18 14:26 | PM.TREADMILL ---
Cardiac Stress Test Report Referral & Results Date Patient Seen: 03/18/21 Requesting provider: Juan Alberto Patel Indication: Atrial flutter Rest ECG: Atrial flutter with 3-4 to 1 conduction Procedure Note: Today following both written and verbal informed consent the patient was exercised according to a standard Ernesto protocol patient went for a total of 5 minutes 18 seconds achieving a maximum heart rate of 152 maximum systolic blood pressure of 180. This is approximately 7.0 METS. Exercise was terminated at this point because of targets were met. Patient was also given Cardiolite through a previously started Hep-Lock IV by the diagnostic imaging staff approximately 1 minute prior to the cessation of exercise. There are no ST-T segment changes Patient was in atrial flutter throughout the monitoring period. Function aerobic impairment rates about-10% sedentary scale Impression: Atrial flutter No evidence of ischemia based on ECG criteria Please see perfusion imaging report as well Please note: Actual ECG tracings can be found in the PACS system.
--- NOTE | 2021-03-19 05:11 | DI.NM.S_ITS ---
DATE OF SERVICE: PROCEDURE: Exercise perfusion study. DATE OF STUDY: 03/18/2021 INDICATIONS: New onset atrial flutter. RADIOPHARMACEUTICAL: 24.7 millicurie technetium-99m Myoview IV was injected at stress and 9.2 millicurie technetium-99m Myoview IV was injected at rest. It was one day protocol. CARDIAC STRESS: The patient underwent exercise perfusion study under the supervision of an attending staff. He walked on Ernesto protocol for 5 minutes and 18 seconds, achieved 109 percent of target heart rate, normal blood pressure response, 7 METs of workload and functional aerobic impairment -10%. No significant anginal symptoms were reported. Baseline EKG revealed atrial flutter. During stress, the patient remained in atrial flutter without any new convincing ischemic changes. RAW DATA: There is increased subdiaphragmatic activity and hot spot near the inferior border. GATED STUDY: Resting LV ejection fraction 67% and stress LV ejection fraction 68%. Resting end-diastolic volume 90 mL. TID ratio 0.98, which is within normal limits. Lung/heart ratio 0.28, which is within normal limits. MYOCARDIAL PERFUSION SCAN: Stress supine and resting supine images revealed moderate to large size, moderately decreased perfusion of inferior wall and inferior apex, as well as inferior septum which got significantly improved during prone images. However, prone images remain to have minimally decreased perfusion of inferior apex. No reversible ischemia. CONCLUSION: I will call this study likely a normal myocardial perfusion study with evidence of tissue attenuation artifact including diaphragmatic tissue attenuation as well as there is increased gut activity near the inferior border which was seen during raw images which got significantly improved during stress prone images. No obvious reversible ischemia. Fair exercise tolerance. No obvious anginal symptoms. Overall, this is a low-risk myocardial perfusion study. The patient remained in typical atrial flutter. Consider ablation for this typical atrial flutter. Aramis Varghese - PIPER/sara/cs doc#: [id number]/job#: [id number] dd: 03/18/2021 17:31:00 dt: 03/19/2021 04:56:00 DICTATING MD/COPIES TO: Nany Key MD COPIES MNE: ARMIN;
== END ==
PROVIDERS: PCP Family Medicine; Referring Provider Family Medicine; Visit Provider Family Medicine
DX: I48.92 Unspecified atrial flutter (principal)
CPT/HCPCS: 78452; 93016; 93017; 93018; A9502

== ENCOUNTER → 2021-04-16 08:58 | Outpatient (CLI) | payer MEDICARE, OTHER, SELFPAY ==
[2021-04-16 11:52] LABS: COVID19 -Nasal RAPID Negative (Negative)
== END ==
PROVIDERS: PCP Family Medicine; Visit Provider Physician Assistant
DX: Z01.812 Encounter for preprocedural laboratory examination (principal); Z20.822 Contact with and (suspected) exposure to COVID-19
CPT/HCPCS: 87635

== ENCOUNTER → 2021-04-16 11:04 | Outpatient (CLI) | payer MEDICARE, OTHER, SELFPAY ==
[2021-04-16 11:30] LABS: Add Manual Diff / Slide Review NO; Basophils Absolute Auto 100 /uL (0-100); Basophils Percent Auto 0.9 % (0-2); Eosinophils Absolute Auto 300 /uL (0-450); Eosinophils Percent Auto 5.1 % (2-4); Hematocrit 41.5 % (41-53); Hemoglobin 14.2 g/dL (13.5-17.5); Lymphocytes Absolute Auto 2200 /uL (1100-4500); Lymphocytes Percent Auto 32.4 % (25-40); Mean Corpuscular HGB Conc 34.3 % (30-36); Mean Corpuscular Hemoglobin 33.3 PG (26-34); Mean Corpuscular Volume 96.9 fL (80-100); Monocytes Absolute Auto 500 /uL (0-900); Monocytes Percent Auto 7.2 % (3-14); Neutrophils Absolute Auto 3600 /uL (1500-7000); Neutrophils Percent Auto 54.4 % (50-75); Platelet Count 206 X10^3/uL (150-400); Red Blood Cell Count 4.28 X10^6/uL (4.5-5.9); Red Cell Distribution Width 13.4 % (11.6-14.8); White Blood Cell Count 6.6 X10^3/uL (4.5-11.0)
[2021-04-16 11:39] LABS: INR 1.3 (0.9-1.3); Prothrombin Time 14.8 SECONDS (10.1-12.7)
[2021-04-16 11:46] LABS: Albumin 4.1 g/dL (3.5-5.0); BUN Creatinine Ratio 22.3 (6-22); Blood Urea Nitrogen 23 mg/dL (9-20); Calcium 9.5 mg/dL (8.4-10.2); Carbon Dioxide 28 mmol/L (22-32); Chloride 103 mmol/L (98-107); Estimated Glomerular Filt Rate > 60.0 mL/min (>60); Glucose 130 mg/dL (80-110); HEMOLYSIS < 15 (0-50); Phosphorous 3.5 mg/dL (2.3-3.7); Potassium 4.9 mmol/L (3.4-5.1); Sodium 137 mmol/L (137-145)
== END ==
PROVIDERS: PCP Physician Assistant; Referring Provider Internal Medicine Cardiovascular Disease; Visit Provider Internal Medicine Cardiovascular Disease
DX: Z01.812 Encounter for preprocedural laboratory examination (principal); I48.3 Typical atrial flutter; Z01.818 Encounter for other preprocedural examination; I10 Essential (primary) hypertension; Z20.822 Contact with and (suspected) exposure to COVID-19
CPT/HCPCS: 36415; 80069; 85025; 85610; 87635; C9803

== ENCOUNTER → 2021-11-15 08:10 | Outpatient (CLI) | payer MEDICARE, OTHER, SELFPAY ==
[2021-11-15 08:33] LABS: COVID19 -Nasal RAPID Negative (Negative)
== END ==
PROVIDERS: PCP Physician Assistant; Visit Provider Physician Assistant
DX: R05.9 Cough, unspecified (principal); R09.81 Nasal congestion
CPT/HCPCS: 87635

== ENCOUNTER → 2022-05-12 08:44 | Outpatient (CLI) | payer MEDICARE, OTHER, SELFPAY ==
--- NOTE | 2022-05-12 | DI.CT.S_ITS ---
PROCEDURE: CT INTERNAL AUDITORY CANALS BI INDICATIONS: Sensorineural hearing loss, bilateral COMPARISON: None. TECHNIQUE: Noncontrast direct axial and coronal sections acquired through each temporal bone separately. FINDINGS: Image quality: Excellent. RIGHT: External auditory canal: Canal has a normal appearance. Middle ear: The middle ear structures, including the ossicles and tympanic membrane, appear normal. No abnormal fluid or soft tissue density. Inner ear: Inner ear is normally formed and appears unremarkable. Facial nerve appears normal throughout is course. Mastoids: Mastoid air cells are clear. LEFT: External auditory canal: Canal has a normal appearance. Middle ear: The middle ear structures, including the ossicles and tympanic membrane, appear normal. No abnormal fluid or soft tissue density. Inner ear: Inner ear is normally formed and appears unremarkable. Facial nerve appears normal throughout its course. Mastoids: Mastoid air cells are clear. MISCELLANEOUS: Visualized surrounding bones appear unremarkable. Bilateral maxillary sinus mucosal thickening measures up to 5.5 mm on the right. Mucosal thickening noted in the ethmoid and sphenoid sinuses with complete opacification of the right sphenoid sinus. Atherosclerotic vascular calcification noted in the cavernous portions of both internal carotid arteries. Additionally, there is a 1 cm soft tissue polyp in the right nasal vault. IMPRESSION: 1. Unremarkable CT of the bilateral temporal bones. Consider follow-up MR IAC with contrast given clinical history to evaluate the 7th and 8th cranial nerve complexes. 2. 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 Consider follow-up dedicated CT sinus Approved by: Ben Bingham M.D. on 05/12/2022 at 12:00
== END ==
PROVIDERS: PCP Physician Assistant; Referring Provider Otolaryngology; Visit Provider Otolaryngology
DX: H90.3 Sensorineural hearing loss, bilateral (principal); J32.4 Chronic pansinusitis; J33.8 Other polyp of sinus
CPT/HCPCS: 70480

== ENCOUNTER 2023-05-06 16:46 | Emergency (ER) | payer MEDICARE, OTHER, SELFPAY ==
[2023-05-06 16:49] VITALS: BP 202/85; PULSE 67; RESP 18; TEMP 36.6; O2SAT 100; BMI 21.4
[2023-05-06 17:34] VITALS: BP 165/75; PULSE 74; RESP 14; O2SAT 97
[2023-05-06] MEDS: LIDOCAINE PATCH 1 EACH ADH..PATCH TOP (17:41)
[2023-05-06] MEDS: IBUPROFEN 400 MG TABLET PO (17:42)
--- NOTE | 2023-05-06 17:43 | ED_ITS ---
HPI - Back Pain/Injury <SUSI Moody - Last Filed: 05/06/23 18:04> General Chief Complaint: Back Pain/Injury Stated Complaint: Lower back inj Time Seen by Provider: 05/06/23 17:16 Source: patient History of Present Illness HPI Narrative: This is an 82-year-old gentleman who presents to the emergency department after physical exertion complaining of low back pain and radiation with his left leg. He states he is had a history of this in the past. He says that he was bent down to move an umbrella base and it was very heavy, he moved it and felt pain in his low back and sciatica symptoms afterwards. He states that he is had a borderline flare of his low back pain for last few days but this sent him into back spasm, and worsening pain. He denies any grandparents seizure coming urinary retention urgency, states he did not have any trauma but has worsening pain. He feels sore, endorsing spasms and feeling very uncomfortable just trying to sit down. Leg lift would exacerbate symptoms and he wishes not to do this. He denies recent fever chills, upper respiratory infection or any other symptoms whatsoever. He denies weakness but states that his low back hurts very badly. He states that the pain is primarily radiating to his left hip and down his left leg. He took some ibuprofen and this has helped. Related Data Previous Rx's Medication Instructions Recorded hydrocodone 5 mg-acetaminophen 325 1 tab PO TID PRN pain #10 tabs 05/06/23 mg tablet lidocaine 5 % topical patch 1 patch topical DAILY PRN back 05/06/23 (Lidoderm) pain #30 ea methocarbamol 500 mg tablet 500 mg PO BEDTIME PRN Muscle spasm 05/06/23 #20 tabs prednisone 20 mg tablet 20 mg PO DAILY #4 tabs 05/06/23 Allergies Allergy/AdvReac Type Severity Reaction Status Date / Time No Known Drug Allergies Allergy Verified 05/06/23 16:54 Review of Systems <SUSI Moody - Last Filed: 05/06/23 18:04> Review of Systems ROS Unobtainable: All systems reviewed & are unremarkable except as noted in HPI and below Patient History <SUSI Moody - Last Filed: 05/06/23 18:04> Medical History Atrial flutter by electrocardiogram Cataract (lens) fragments in eye following cataract surgery, bilateral (~2017) Chicken pox Colon polyps (~2003) Fractures (~2014) Hearing loss (~2017) Hyperlipidemia Measles Mumps Screening for prostate cancer Tinnitus (~1999) Surgical History Anesthesia Family History Mother Stroke Diabetes mellitus Social History household members: spouse Smoking Status: Never smoker Smoking Status: Never smoker alcohol intake frequency: holidays/special occasions only Substance Use Type: does not use Exam <SUSI Moody - Last Filed: 05/06/23 18:04> Narrative Exam Narrative: Reviewed vitals signs and nursing notes. General: Pleasant, sitting upright, in no acute distress although shifting his weight frequently as he is uncomfortable, well groomed HEENT: symmetrical facial expressions,neck is supple GI: abdomen soft, nondistended, without CVA tenderness bilaterally. MSK: moves all extremities, no weakness, normal tone, ambulatory without deficit, nontender along his spine, patient's back is nontender and free of obvious external abnormalities, no decreased range of motion, no active muscle spasm, no CVA tenderness or vertebral point tenderness on exam. There are no symptoms of cauda equina such as saddle anesthesia, decreased reflexes, decreased sensation or strength, and patient endorses if he lifted his left leg he would have worsening low back pain and that is not something he wishes to do. He has soft tissue tenderness to palpation but no erythema, rash, other obvious abnormality. He is atraumatic. Skin: brisk capillary refill, without rash or wound Neuro: clear speech and normal cognition, A&O x3, GCS 15, no focal motor or sensation deficits Initial Vital Signs Initial Vital Signs: Vital Signs Temperature 97.9 F 05/06/23 16:49 Pulse Rate 67 05/06/23 16:49 Respiratory Rate 18 05/06/23 16:49 Blood Pressure 202/85 H 05/06/23 16:49 Pulse Oximetry 100 05/06/23 16:49 Oxygen Delivery Method Room Air 05/06/23 16:49 <Anjel Gomes DO - Last Filed: 05/08/23 07:29> Initial Vital Signs Initial Vital Signs: Vital Signs Temperature 97.9 F 05/06/23 16:49 Pulse Rate 67 05/06/23 16:49 Respiratory Rate 18 05/06/23 16:49 Blood Pressure 202/85 H 05/06/23 16:49 Pulse Oximetry 100 05/06/23 16:49 Oxygen Delivery Method Room Air 05/06/23 16:49 Course <JOSS MoodyP - Last Filed: 05/06/23 18:04> Orders Ordered: Discontinued Medications Hydrocodone Bitart/Acetaminophen (Hydrocodone/Acet 5/325 Tablet) 1 tab PO NOW ONE Stop: 05/06/23 17:32 Last Admin: 05/06/23 17:45 Dose: 1 tab Documented By: RICH Ibuprofen (Ibuprofen 400 Mg Tablet) 400 mg PO NOW ONE Stop: 05/06/23 17:33 Last Admin: 05/06/23 17:42 Dose: 400 mg Documented By: RICH Lidocaine (Lidocaine Patch 1 Each Adh..Patch) 1 each TOP NOW ONE Stop: 05/06/23 17:32 Last Admin: 05/06/23 17:41 Dose: 1 each Documented By: RICH Methocarbamol (Methocarbamol 500 Mg Tablet) 500 mg PO NOW ONE Stop: 05/06/23 17:32 Last Admin: 05/06/23 17:44 Dose: 500 mg Documented By: RICH Prednisone (Prednisone 20 Mg Tablet) 20 mg PO NOW ONE Stop: 05/06/23 17:32 Last Admin: 05/06/23 17:44 Dose: 20 mg Documented By: RICH Vital Signs Vital signs: Vital Signs - 8 hr 05/06/23 16:49 05/06/23 17:34 05/06/23 17:54 Temperature 97.9 F Pulse Rate 67 74 69 Respiratory Rate 18 14 16 Blood Pressure 202/85 H 165/75 H 152/67 H Pulse Oximetry 100 97 99 Oxygen Delivery Method Room Air Room Air Room Air <Anjel Gomes DO - Last Filed: 05/08/23 07:29> Orders Ordered: Discontinued Medications Hydrocodone Bitart/Acetaminophen (Hydrocodone/Acet 5/325 Tablet) 1 tab PO NOW ONE Stop: 05/06/23 17:32 Last Admin: 05/06/23 17:45 Dose: 1 tab Documented By: RICH Ibuprofen (Ibuprofen 400 Mg Tablet) 400 mg PO NOW ONE Stop: 05/06/23 17:33 Last Admin: 05/06/23 17:42 Dose: 400 mg Documented By: RICH Lidocaine (Lidocaine Patch 1 Each Adh..Patch) 1 each TOP NOW ONE Stop: 05/06/23 17:32 Last Admin: 05/06/23 17:41 Dose: 1 each Documented By: RICH Methocarbamol (Methocarbamol 500 Mg Tablet) 500 mg PO NOW ONE Stop: 05/06/23 17:32 Last Admin: 05/06/23 17:44 Dose: 500 mg Documented By: RICH Prednisone (Prednisone 20 Mg Tablet) 20 mg PO NOW ONE Stop: 05/06/23 17:32 Last Admin: 05/06/23 17:44 Dose: 20 mg Documented By: RICH Vital Signs Vital signs: Vital Signs - 8 hr 05/06/23 16:49 05/06/23 17:34 05/06/23 17:54 Temperature 97.9 F Pulse Rate 67 74 69 Respiratory Rate 18 14 16 Blood Pressure 202/85 H 165/75 H 152/67 H Pulse Oximetry 100 97 99 Oxygen Delivery Method Room Air Room Air Room Air MDM - Back Pain/Injury <SUSI Moody - Last Filed: 05/06/23 18:04> MDM Narrative Medical decision making narrative: Chief Complaint: Worsening low back pain, radiation Primary historian: Patient, his Multiple etiologies for patient's complaint considered including, but not limited to: disc injury/herniation, radiculopathy, muscular sprain, chronic pain, malignancy, spondyloarthropathy, nerve compression, acute fracture, urinary tract infection, osteoarthritis, degenerative disc disease, cauda equina, osteomyelitis, epidural abscess, spinal stenosis, ligamental injury. I have independently reviewed the patient's vital signs and nursing notes as well as prior records if available. Course of care: Patient's without decreased reflexes or strength, no immunosuppression or evidence of infection, no peritoneal signs, he was hypertensive initially but this has improved, does not have incontinence or meningeal signs. His pain was exacerbated by lifting/moving a heavy object but is nontraumatic. He has increased low back pain with straight leg raise from supine position.Recommend patient follow-up with PCP, he states that his PCP has left and there is a new provider that he has not seen yet. I recommend physical therapy, as patient to send a message to his provider for referral and for ongoing follow-up regarding his low back pain. He was given a prednisone course, methocarbamol, hydrocodone to use as needed, and lidocaine patches. He did not have any cognitive deficits or neurologic deficits on exam, he remained alert and oriented after his medications and tolerated p.o.. Is ambulatory. Does not have any red flag symptoms. No bony tenderness to palpation, no bowel or urinary incontinence, no retention, no saddle anesthesia, no worsening or new weakness, no change to reflexes, does not have footdrop. He has soft tissue tenderness, likely radiation to his left hip upper leg. There is no rash. Social considerations that may affect disposition: none Questions are addressed and there is agreement with the plan and for follow-up. I consulted with the ED attending physician Dr. Gomes as needed for higher level of care considerations and they were available for discussion and recommendations regarding plan of care and diagnostic testing. Patient is a ppropriate for outpatient management. Discharge Plan Departure Patient Disposition: Home Clinical Impression: Acute lumbar radiculopathy, Acute exacerbation of chronic low back pain Instructions: DI for Back Pain With Sciatica, DI for Lumbar Radiculopathy Activity Restrictions/Additional Instructions: *You have been diagnosed with exacerbation of low back pain sciatica and the potential to ruin your day. Thank you for coming in for evaluation, I am sorry for his pain, it is difficult to treat. Schedule follow-up with your primary care provider or whoever is replacing Irena Ashby and ask for referral to physical therapy, your symptoms should improve with the course of this. If it returns, when she to have follow- up whether it involves orthopedic evaluation or physical therapy evaluation, either or is acceptable but please prioritize seeing PT or ortho for follow-up. Take a pain pill every 6 hours as needed for pain, this will make you drowsy, the muscle relaxers will cause drowsiness also, please do not take methocarbamol with hydrocodone. Please space least an hour apart so you know how to expect to feel. Ibuprofen 400 mg every 6 hours with Tylenol 650 should give you a good pain control. It is okay to use a patch every 12 hours on your low back to take the edge off, and a pain pill as necessary. Please take a muscle relaxer for back spasm or muscle tightness, or if you are having difficulty falling asleep. It was a pleasure to meet you, you should feel better soon, please take prednisone with food and water as well. *What to do: *Please continue to take your regular medications as directed. [ x] New medication prescriptions sent to your pharmacy: [[facility] ] [ ] New medication written as a paper prescription [ ] No new medications given *Please call and schedule follow up with your primary care provider in 2-3 days, at least for an update. Let them know you were seen in the Emergency Department for the above problem. We will electronically transmit a record of today's note if your PCP or specialist is in our system. *If you do not have a primary care provider please contact [phone] to establish care with one of the [facility] primary care providers. *Return to the Emergency Department for worsening symptoms, inability to keep liquids down, fever greater than 101F, chills, or other concerning symptom. Prescriptions: New lidocaine [Lidoderm] 5 % adhesive patch,medicated 1 patch topical DAILY PRN (Reason: back pain) Qty: 30 0RF Rx Instructions: leave on most painful area for up to 12 hrs prednisone 20 mg tablet 20 mg PO DAILY Qty: 4 0RF methocarbamol 500 mg tablet 500 mg PO BEDTIME PRN (Reason: Muscle spasm) Qty: 20 0RF Rx Instructions: This will make you sleepy, please do not drive, drink plenty of water, do not take with hydrocodone. hydrocodone-acetaminophen 5-325 mg tablet 1 tab PO TID PRN (Reason: pain) Qty: 10 0RF Referrals: [facility] [Provider Group] Irena Ashby PA-C [Primary Care Provider] - Gracie Kapoor PA-C [Advanced Embedded Software Development Engineer] - Stand Alone Forms: Patient Portal/API <Anjel Gomes DO - Last Filed: 05/08/23 07:29> [facility] ED Attending Evelynature Attestation: I was immediately available in the department for consultation. This documentation has been reviewed and I agree with assessment and plan. Supervised by Anjel Gomes DO
[2023-05-06] MEDS: predniSONE 20 MG TABLET PO (17:44)
[2023-05-06] MEDS: methocarbamoL 500 MG TABLET PO (17:44)
[2023-05-06] MEDS: HYDROCODONE/ACET 5/325 TABLET 1 TAB PO (17:45)
[2023-05-06 17:54] VITALS: BP 152/67; PULSE 69; RESP 16; O2SAT 99
== END 2023-05-06 18:11 | disposition home or self-care (01) ==
PROVIDERS: Emergency Provider Nurse Practitioner Critical Care Medicine; PCP Physician Assistant
DX: M54.16 Radiculopathy, lumbar region (principal); G89.29 Other chronic pain; M54.50 Low back pain, unspecified
CPT/HCPCS: 99283

== ENCOUNTER → 2023-07-22 08:05 | Outpatient (CLI) | payer MEDICARE, OTHER, SELFPAY ==
--- NOTE | 2023-07-22 | DI.MRI.S_ITS ---
PROCEDURE: MR LUMBAR SPINE WO CON INDICATIONS: SPINAL STENOSIS TECHNIQUE: Noncontrast sagittal T1 spin echo and T2 fast echo, sagittal STIR, and T2 fast spin echo through the lumbar spine. In cases with scoliosis, additional coronal T2 fast spin echo may be performed. COMPARISON: None. FINDINGS: Image quality: Excellent. Alignment and Curvature: Straightening of the normal lumbar lordosis. No spondylolisthesis Bone Marrow: Marrow is of normal overall signal. No acute vertebral body compression fractures. Spinal Cord: Conus medullaris terminates at the L1 level. Visualized cord demonstrates normal signal and size. Paraspinous Soft Tissues: No paravertebral masses. Right renal cysts. T12-L1: Disc desiccation and small posterior disc bulge. Facet arthropathy. No central canal or neural foraminal stenosis. L1-L2: Small posterior disc bulge, facet arthropathy and thickening of ligamentum flavum. Mild epidural lipomatosis. No central canal or neural foraminal stenosis. L2-L3: Small posterior disc bulge. Facet arthropathy and thickening of ligamentum flavum. Mild epidural lipomatosis. Mild central canal stenosis and narrowing of the lateral recesses, right greater than left with possible impingement of the descending right L3 nerve root. Mild bilateral neural foraminal stenosis. L3-L4: Disc desiccation and small posterior disc bulge. Facet arthropathy and thickening of ligamentum flavum. Epidural lipomatosis. Mild central canal stenosis. Narrowing of the right greater than left lateral recesses with possible impingement of the descending right L4 nerve root. Moderate left and mild right neural foraminal stenosis. L4-L5: Central and left paracentral disc protrusion. Facet arthropathy and thickening of ligamentum flavum. Epidural lipomatosis. This results in moderate to severe central canal stenosis. Severe bilateral neural foraminal stenosis. L5-S1: Minimal posterior disc bulge. No central canal stenosis. Facet arthropathy. Severe right and moderate left neural foraminal stenosis. IMPRESSION: 1. Multilevel degenerative changes of the lumbar spine, most pronounced at L4-5 and L5-S1. 2. There is moderate to severe central canal stenosis at L4-5 and severe bilateral neural foraminal stenosis. 3. Severe right and moderate left neural foraminal stenosis at L5-S1. Dictated by: Bob Zeng M.D. on 07/22/2023 at 9:46 Approved by: Bob Zeng M.D. on 07/22/2023 at 9:52
== END ==
PROVIDERS: Referring Provider Physical Medicine & Rehabilitation Pain Medicine; Visit Provider Physical Medicine & Rehabilitation Pain Medicine
DX: M48.062 Spinal stenosis, lumbar region with neurogenic claudication (principal); M48.07 Spinal stenosis, lumbosacral region; M47.816 Spondylosis without myelopathy or radiculopathy, lumbar region; M47.817 Spondylosis without myelopathy or radiculopathy, lumbosacral region
CPT/HCPCS: 72148

== ENCOUNTER 2024-09-24 09:20 | Emergency (ER) | payer MEDICARE, OTHER, SELFPAY ==
[2024-09-24] VITALS (10 sets, daily range): BP systolic 103–128; BP diastolic 56–60; PULSE 58–67; RESP 14–27; TEMP 36.4; O2SAT 94–97; BMI 21.7
--- NOTE | 2024-09-24 09:34 | DI.RAD.S_ITS ---
PROCEDURE: XR CHEST 1V INDICATIONS: chest pain TECHNIQUE: One view of the chest was acquired. COMPARISON: CT, CT CHEST WITHOUT CONTRAST, 08/14/2019, 11:14. [facility], CR, XR CHEST 1V, 12/05/2018, 8:03. FINDINGS: Surgical changes and devices: None. Lungs and pleura: No focal infiltrates are seen. A few scattered pulmonary granulomas can be seen, as before. No pleural effusions or pneumothorax. Mediastinum: Mediastinal contours appear normal. Heart size is normal. Atherosclerotic calcification of the aortic arch is noted. Bones and chest wall: No suspicious bony lesions. Age-appropriate bony degenerative changes are seen. Overlying soft tissues appear unremarkable. IMPRESSION: Portable chest within normal limits for age. Additional findings: Prior granulomatous exposure. Dictated by: Storm Downs M.D. on 09/24/2024 at 9:16 Approved by: Storm Downs M.D. on 09/24/2024 at 9:17
--- NOTE | 2024-09-24 09:38 | EKG_ITS ---
[address] [address] [address] Test Date: 2024-09-24 Pat Name: Aramis Varghese Department: [facility] Room: Gender: Male Weapons Mechanic: DUSTY : 1940 Requested By: Order Number: [id number] Reading MD: Josue Da Silva Measurements Intervals [place] Rate: 63 P: 74 UT: 170 QRS: 28 QRSD: 96 T: 46 QT: 386 QTc: 395 Interpretive Statements Normal sinus rhythm Electronically Signed On 09-26-2024 14:43:42 PDT by Josue Da Silva
[2024-09-24 10:04] LABS: Add Manual Diff / Slide Review NO; Basophils Absolute Auto 100 /uL (0-100); Eosinophils Absolute Auto 400 /uL (0-450); Eosinophils Percent Auto 8.4 % (2-4); Hemoglobin 13.3 g/dL (13.5-17.5); Lymphocytes Absolute Auto 1400 /uL (1100-4500); Lymphocytes Percent Auto 28.4 % (25-40); Mean Corpuscular Hemoglobin 33.1 PG (26-34); Mean Corpuscular Volume 97.3 fL (80-100); Monocytes Absolute Auto 400 /uL (0-900); Monocytes Percent Auto 8.6 % (3-14); Neutrophils Absolute Auto 2600 /uL (1500-7000); Neutrophils Percent Auto 53.6 % (50-75); Platelet Count 240 X10^3/uL (150-400); Red Blood Cell Count 4.01 X10^6/uL (4.5-5.9); Red Cell Distribution Width 13.6 % (11.6-14.8); White Blood Cell Count 4.9 X10^3/uL (4.5-11.0)
[2024-09-24 10:07] LABS: Prothrombin Time 11.4 SECONDS (9.4-12.5)
[2024-09-24 10:10] LABS: PTT Partial Thromboplastin Tim 30 SECONDS (25.1-36.5)
[2024-09-24 10:12] LABS: Alanine Aminotransferase 28 IU/L (<50); Albumin 3.8 g/dL (3.5-5.0); Albumin Globulin Ratio 1.6 (1.0-2.8); Alkaline Phosphatase 42 U/L (38-126); Aspartate Aminotransferase 41 IU/L (17-59); BUN Creatinine Ratio 22.3 (6-22); Bilirubin Total 0.5 mg/dL (0.2-1.3); Blood Urea Nitrogen 23 mg/dL (9-20); Carbon Dioxide 25 mmol/L (22-32); Chloride 106 mmol/L (98-107); Creatine Kinase 73 U/L (55-170); Estimated Glomerular Filt Rate > 60 mL/min (>60); Globulin 2.4 g/dL (1.7-4.1); Glucose 120 mg/dL (80-110); HEMOLYSIS 25 (0-50); Lipase 112 U/L (23-300); Magnesium 1.8 mg/dL (1.6-2.3); Potassium 4.5 mmol/L (3.4-5.1); Sodium 135 mmol/L (137-145); Total Protein 6.2 g/dL (6.3-8.2)
[2024-09-24 10:23] LABS: NT-proBNP (BNP-Adult 18+) 155 pg/mL (<450); Troponin I < 0.012 ng/mL (0.01-0.034)
--- NOTE | 2024-09-24 10:48 | ED_ITS ---
HPI - General Adult General Chief complaint: Dizziness Stated complaint: lightheaded, sweating Time Seen by Provider: 09/24/24 09:50 Source: patient Mode of arrival: Ambulatory History of Present Illness HPI narrative: 84-year-old gentleman with a history of atrial flutter post ablation, currently on no medications awoke this morning was fixing breakfast standing in the kitchen felt slightly lightheaded sat down and is now feeling better. He has never had similar findings generally has no symptoms whatsoever and is remarkably healthy. Was concerned enough with the lightheaded sensation that he comes in for further evaluation. Recently he has had no fever, cough, chills, nausea, vomiting, headache, weakness, numbness, palpitations, orthopnea, lower extremity edema, chest pain Related Data Previous Rx's Medication Instructions Recorded ofloxacin 0.3 % ear drops 10 drp EAR-LEFT BID 14 days #10 mL 05/15/24 Allergies Allergy/AdvReac Type Severity Reaction Status Date / Time No Known Drug Allergies Allergy Verified 05/15/24 15:53 Review of Systems Review of Systems Narrative: Pertinent positive and negative findings as per HPI Patient History Medical History Fractures (~2014) Mumps Measles Chicken pox Tinnitus (~1999) Hearing loss (~2018) Colon polyps (~2004) Screening for prostate cancer Hyperlipidemia Atrial flutter by electrocardiogram Cataract (lens) fragments in eye following cataract surgery, bilateral (~2018) Surgical History Anesthesia Family History Mother Stroke Diabetes mellitus Social History household members: spouse Smoking Status: Never smoker Smoking Status: Never smoker alcohol intake frequency: holidays/special occasions only Substance Use Type: does not use Exam Initial Vital Signs Initial Vital Signs: Vital Signs Pulse Rate 67 09/24/24 09:31 Pulse Oximetry 97 09/24/24 09:31 General: Healthy appearing, in no acute distress. Able to give a complete and coherent history. Well-nourished well-developed HEENT: Moist mucous membranes, normal sclera with reactive pupils, Neck: No JVD, no carotid bruits Respiratory: Lungs are clear to auscultation, no wheezing no rales no rhonchi. Full and symmetrical air movement Cardiac: Regular rate and rhythm no murmurs no bruits Abdomen: Soft, nontender, good bowel tones, no flank pain Skin: Warm and dry, no rashes Neurologic: Grossly neurologically intact with no obvious asymmetries or abnormalities Extremities: No trauma, well perfused, no edema Psych: Cooperative, appropriate insight and affect Course Orders Ordered: ED Orders 09/24/24 09:34 XR chest 1V Stat EKG-12 Lead Stat 09/24/24 09:50 Complete Blood Count AUTO DIFF Stat Comprehensive Metabolic Panel Stat Lipase Stat Magnesium Stat NT-proBNP (BNP-Adult 18+) Stat PTT Partial Thromboplastin Akbar Stat Prothrombin Time INR Stat Troponin & CK Cardiac Panel Stat 09/24/24 11:45 Trop I [Troponin I] Stat Discontinued Medications Sodium Chloride (Normal Saline 0.9%) 1,000 mls @ 1,000 mls/hr IV BOLUS ONE Stop: 09/24/24 11:59 Last Infusion: 09/24/24 12:30 Dose: Infused Documented By: Admin: 09/24/24 11:19 Dose: 1,000 mls/hr Documented By: SORAYA(2) Vital Signs Vital signs: Vital Signs - 8 hr 09/24/24 09:31 09/24/24 09:34 09/24/24 10:00 Temperature 97.6 F Pulse Rate 67 65 60 Respiratory Rate 18 18 Blood Pressure 128/60 Pulse Oximetry 97 97 96 Oxygen Delivery Method Room Air 09/24/24 10:30 09/24/24 10:53 09/24/24 10:53 Temperature Pulse Rate 59 L 64 Respiratory Rate 15 27 H Blood Pressure 114/56 L Pulse Oximetry 94 96 Oxygen Delivery Method 09/24/24 11:00 09/24/24 11:30 09/24/24 12:00 Temperature Pulse Rate 61 59 L 58 L Respiratory Rate 14 19 23 Blood Pressure 115/57 L Pulse Oximetry 95 95 95 Oxygen Delivery Method 09/24/24 12:30 09/24/24 12:31 Temperature Pulse Rate 59 L Respiratory Rate 18 Blood Pressure 103/57 L Pulse Oximetry 95 Oxygen Delivery Method Medical Decision Making Lab Data 09/24/24 09:50 09/24/24 09:50 Labs: Lab Results 09/24/24 09/24/24 Range/Units 09:50 11:45 WBC 4.9 (4.5-11.0) X10^3/uL RBC 4.01 L (4.5-5.9) X10^6/uL Hgb 13.3 L (13.5-17.5) g/dL Hct 39.0 L (41-53) % MCV 97.3 (80-100) fL MCH 33.1 (26-34) PG MCHC 34.0 (30-36) % RDW 13.6 (11.6-14.8) % Plt Count 240 (150-400) X10^3/uL Neut % (Auto) 53.6 (50-75) % Lymph % (Auto) 28.4 (25-40) % [place] % (Auto) 8.6 (3-14) % Eos % (Auto) 8.4 H (2-4) % Baso % (Auto) 1.0 (0-2) % Neut # (Auto) 2600 (3305-4528) /uL Lymph # (Auto) 1400 (2041-8798) /uL [place] # (Auto) 400 (0-900) /uL Eos # (Auto) 400 (0-450) /uL Baso # (Auto) 100 (0-100) /uL PT 11.4 (9.4-12.5) SECONDS INR 1.0 (0.9-1.3) APTT 30 (25.1-36.5) SECONDS Sodium 135 L (137-145) mmol/L Potassium 4.5 (3.4-5.1) mmol/L Chloride 106 (98-107) mmol/L Carbon Dioxide 25 (22-32) mmol/L BUN 23 H (9-20) mg/dL Creatinine 1.03 (0.66-1.25) mg/dL Estimated GFR > 60 (>60) mL/min BUN/Creatinine Ratio 22.3 H (6-22) Glucose 120 H (80-110) mg/dL Calcium 9.0 (8.4-10.2) mg/dL Magnesium 1.8 (1.6-2.3) mg/dL Total Bilirubin 0.5 (0.2-1.3) mg/dL AST 41 (17-59) IU/L ALT 28 (<50) IU/L Alkaline Phosphatase 42 (38-126) U/L Total Creatine Kinase 73 (55-170) U/L Troponin I < 0.012 < 0.012 (0.01-0.034) ng/mL NT-Pro-B Natriuret Pep 155 (<450) pg/mL Total Protein 6.2 L (6.3-8.2) g/dL Albumin 3.8 (3.5-5.0) g/dL Globulin 2.4 (1.7-4.1) g/dL Albumin/Globulin Ratio 1.6 (1.0-2.8) Lipase 112 (23-300) U/L MDM Narrative Medical decision making narrative: CC: Near-syncope while standing at the kitchen sink this morning Complicating co-morbidities: Distant history of atrial flutter post ablation, not currently on medications Data collected from: patient Differential considered: Arrhythmia, acute coronary syndrome, stroke, orthostatic hypotension, pulmonary embolism Exam documented above, pertinent findings include: Remarkably healthy-appearing decade younger than stated age. Exam is entirely benign Lab Test results independently reviewed as above. Pertinent findings: CBC shows no evidence of infection. Mild anemia at 13.3 and 39.0 Chemistries are reassuring with normal creatinine. Troponin is undetectable Glucose is 120 BNP is not elevated Repeat troponin remains undetectable Independently reviewed EKG: EKGs entirely reassuring at a rate of 63, no acute ischemic change Imaging studies independently reviewed: Chest x-ray shows no acute findings Treatments: 1 L of saline Discussion: 84-year-old gentleman with a near syncopal episode this morning shortly after getting out of bed. Workup does not suggest life-threatening etiology specifically no acute cardiac event, kidney issues, electrolyte abnormalities, arrhythmia, stroke, pulmonary embolism. He is feeling better after a L of IV fluids were given. Findings reviewed in detail with him. At this point there was no indication for additional imaging or hospitalization. He is safe for discharge Discharge Plan Departure Patient Disposition: Home Clinical Impression: Orthostatic hypotension Instructions: DI for Orthostatic Hypotension Activity Restrictions/Additional Instructions: Thank you for coming in today Your workup was very reassuring. There was no evidence of life-threatening abnormality such as a stroke, heart attack, blood clots in your lungs, severe infection, kidney problems liver problems or alternate findings that would require hospitalization today I believe that your blood pressure was simply a bit too low this morning, you have responded nicely to fluids given in the emergency department. If you find that you are getting worse or develop any new symptoms, please feel free to return to the emergency department for further evaluation. Prescriptions: No Action ofloxacin 0.3 % drops 10 drp EAR-LEFT BID 14 Days Qty: 10 1RF Referrals: Miscellaneous,Doctor, MD [Primary Care Provider] - Stand Alone Forms: Patient Portal/API
[2024-09-24] MEDS: SODIUM CHLORIDE 0.9% 1,000 ML 1000 ML IV (11:19)
[2024-09-24 12:15] LABS: Troponin I < 0.012 ng/mL (0.01-0.034)
== END 2024-09-24 13:33 | disposition home or self-care (01) ==
PROVIDERS: Emergency Provider Emergency Medicine
DX: I95.1 Orthostatic hypotension (principal)
CPT/HCPCS: 36415; 71045; 80053; 82550; 83690; 83735; 83880; 84484; 85025; 85610; 85730; 93005; 96360; 99284

== ENCOUNTER 2025-02-11 06:17 | Emergency (ER) | payer MEDICARE, OTHER, SELFPAY ==
[2025-02-11 06:24] VITALS: BP 143/65; PULSE 96; RESP 20; TEMP 36.4; O2SAT 97; BMI 22.1
[2025-02-11] MEDS: LIDOCAINE 2% (GLYDO) 6 ML GEL TOP (06:35)
[2025-02-11 06:40] VITALS: PULSE 80; O2SAT 97
[2025-02-11 06:41] VITALS: BP 128/62; PULSE 79; O2SAT 97
--- NOTE | 2025-02-11 06:56 | ED_ITS ---
HPI - Male Genitourinary General Chief complaint: Urogenital-Male Stated complaint: Unable to urinate; in pain Time Seen by Provider: 02/11/25 06:25 Source: patient Mode of arrival: Ambulatory History of Present Illness HPI Narrative: Patient is a 84-year-old male no past medical history does not go to doctors presenting today with severe abdominal pain inability to urinate some constipation. He says he was a little constipated yesterday but ultimately he did have a small hard and bowel movement. He has had difficulty urinating for at least the last 12 hours. He was pacing around all night. No nausea or vomiting or fever. No history of prostate issues previously. Martinez catheter has not been placed by nursing staff 600 cc have come out. Symptoms completely resolved Related Data Previous Rx's Medication Instructions Recorded amoxicillin 875 mg-potassium 1 tab PO BID #20 tabs 12/21/24 clavulanate 125 mg tablet amoxicillin 875 mg-potassium 1 tab PO BID #20 tabs 12/21/24 clavulanate 125 mg tablet Allergies Allergy/AdvReac Type Severity Reaction Status Date / Time No Known Drug Allergies Allergy Verified 12/21/24 12:42 Patient History Medical History Fractures (~2014) Mumps Measles Chicken pox Tinnitus (~1999) Hearing loss (~2017) Colon polyps (~2004) Screening for prostate cancer Hyperlipidemia Atrial flutter by electrocardiogram Cataract (lens) fragments in eye following cataract surgery, bilateral (~2017) Surgical History Anesthesia Family History Mother Stroke Diabetes mellitus Social History household members: spouse Smoking Status: Never smoker Smoking Status: Never smoker alcohol intake frequency: holidays/special occasions only Exam Initial Vital Signs Initial Vital Signs: Vital Signs Temperature 97.6 F 02/11/25 06:24 Pulse Rate 96 H 02/11/25 06:24 Respiratory Rate 20 02/11/25 06:24 Blood Pressure 143/65 H 02/11/25 06:24 Pulse Oximetry 97 02/11/25 06:24 Oxygen Delivery Method Room Air 02/11/25 06:24 GENERAL: Alert pleasant 84-year-old male. CARDIOVASCULAR: peripheral pulses in tact, cap refill <2 sec RESPIRATORY: No respiratory distress, speaks in full sentences without difficulty ABDOMEN: Soft, nontender, no guarding or rebound : Martinez catheter in place clear urine no suprapubic pain EXTREMITIES: Normal range of motion, no clubbing or edema. Neurovascularly intact NEUROLOGICAL: Cranial nerves II through XII grossly intact. Normal gait and speech. SKIN: Warm, dry, no petechiae, no rashes or lesions. Course Orders Ordered: Discontinued Medications Lidocaine HCl (Lidocaine 2% (Glydo) 6 Ml Gel) 6 ml TOP NOW ONE Stop: 02/11/25 06:29 Last Admin: 02/11/25 06:35 Dose: 6 ml Documented By: LISY Vital Signs Vital signs: Vital Signs - 8 hr 02/11/25 06:24 Temperature 97.6 F Pulse Rate 96 H Respiratory Rate 20 Blood Pressure 143/65 H Pulse Oximetry 97 Oxygen Delivery Method Room Air MDM - Male Genitourinary Lab Data Labs: Urine Dip Bedside Urine Glucose Negative Bedside Urine Bilirubin - Negative Bedside Urine Ketone - Negative Urine Specific [place] 1.010 Bedside Urine Occult Blood - Negative Bedside Urine pH 6.0 Bedside Urine Protein - Negative Bedside Urine Urobilinogen - Negative Bedside Urine Nitrite - Negative Bedside Urine Leukocytes - Negative Esterase [facility] Narrative Medical decision making narrative: Patient 84-year-old male presenting to day with urinary retention and some mild constipation. He reports that constipation has resolved. His symptoms have completely improved after Martinez catheter. Urinalysis is negative. At this time follow-up outpatient Discharge Plan Departure Patient Disposition: Home Clinical Impression: Acute urinary retention Instructions: DI for Urinary Retention in Men Activity Restrictions/Additional Instructions: *You have been diagnosed with urinary retention *What to do: At this time please follow-up with your urology in regards to getting Martinez catheter out Recommend stool softeners as needed for constipation *Continue to take medications as directed *Follow up with your primary care provider in 2-3 days or call [phone] Van call tomorrow to schedule an appointment *Return to ER if you should have Martinez catheter not working blood in your or any new, worsening or concerning symptoms Prescriptions: No Action amoxicillin-pot clavulanate 875-125 mg tablet 1 tab PO BID Qty: 20 0RF amoxicillin-pot clavulanate 875-125 mg tablet 1 tab PO BID Qty: 20 0RF Referrals: Yimi Van DO [Physician] - Miscellaneous,MD Sriram [Primary Care Provider] - Tavon Munoz MD [Physician] - Stand Alone Forms: Patient Portal/API/Survey
[2025-02-11 07:00] VITALS: BP 129/60; PULSE 80; O2SAT 95
== END 2025-02-11 07:35 | disposition home or self-care (01) ==
PROVIDERS: Emergency Provider Emergency Medicine
DX: R33.9 Retention of urine, unspecified (principal)
CPT/HCPCS: 51702; 81003; 99283

== ENCOUNTER 2025-02-21 01:39 | Emergency (ER) | payer MEDICARE, OTHER, SELFPAY ==
[2025-02-21 02:16] VITALS: BP 125/58; PULSE 79; RESP 18; TEMP 36.7; O2SAT 95; BMI 22.1
--- NOTE | 2025-02-21 02:34 | ED.MALEGU ---
HPI - Male Genitourinary General Chief complaint: Urogenital-Male Stated complaint: Trouble urinating; in pain Time Seen by Provider: 02/21/25 02:33 Source: patient Mode of arrival: Ambulatory History of Present Illness HPI Narrative: Patient presents with a two-week history of urinary retention. He initially visited the emergency room where a Martinez catheter was placed, and he was advised to follow up with a urologist. The patient followed up with a urologist who started him on Flomax and advised him to remove the catheter after a few days. The patient removed the catheter and was able to void normally until yesterday evening when symptoms of urinary retention recurred. He denies any missed doses of Flomax, hematuria, or medication use that could contribute to urinary retention. He reports feeling unwell with chills and shakiness yesterday. Medications: Flomax Related Data Previous Rx's Medication Instructions Recorded amoxicillin 875 mg-potassium 1 tab PO BID #20 tabs 12/21/24 clavulanate 125 mg tablet amoxicillin 875 mg-potassium 1 tab PO BID #20 tabs 12/21/24 clavulanate 125 mg tablet cefuroxime axetil 500 mg tablet 500 mg PO BID #14 tabs 02/21/25 Allergies Allergy/AdvReac Type Severity Reaction Status Date / Time No Known Drug Allergies Allergy Verified 12/21/24 12:42 Review of Systems Review of Systems Narrative: Constitutional: Reports feeling unwell with chills and shakiness. Eyes: no visual changes. Ears/Nose/Throat: no nasal congestion or drainage. Respiratory: no soa. Cardiac: no chest pain. Gastrointestinal: no nausea and vomiting. Skin: no laceration, no rash. Musculoskeletal: no extremity pain. Neurologic: no confusion. Psychiatric: no mood change Genitourinary: Reports urinary retention, denies hematuria. Other: other Patient History Medical History Fractures (~2014) Mumps Measles Chicken pox Tinnitus (~1999) Hearing loss (~2017) Colon polyps (~2003) Screening for prostate cancer Hyperlipidemia Atrial flutter by electrocardiogram Cataract (lens) fragments in eye following cataract surgery, bilateral (~2017) Surgical History Anesthesia Family History Mother Stroke Diabetes mellitus Social History household members: spouse Smoking Status: Never smoker Smoking Status: Never smoker alcohol intake frequency: holidays/special occasions only Exam Narrative Exam Narrative: General: Well appearing, well nourished, in no acute distress. Skin: Good turgor, no rash, unusual bruising or prominent lesions. Head: Normocephalic, atraumatic. HEENT: Conjunctiva clear, EOM intact, PERRL, Mucous membranes moist. Neck: Supple, normal ROM. Heart: Regular rate and rhythm, no murmur or gallop or rubs. Lungs: Clear to auscultation. No rales, rhonchi, or wheezes. Abdomen: Mild suprapubic tenderness. Soft and nontender otherwise. Bowel sounds normal. No mass or hernia. Back: Spine normal without deformity or tenderness, no CVA tenderness. Extremities: No deformities, edema. Peripheral pulses intact. Neurologic: CN 2-12 normal. Normal sensation and motor exam. Psychiatric: Oriented X3. Normal mood and affect. Initial Vital Signs Initial Vital Signs: Vital Signs Temperature 98.0 F 02/21/25 02:16 Pulse Rate 79 02/21/25 02:16 Respiratory Rate 18 02/21/25 02:16 Blood Pressure 125/58 L 02/21/25 02:16 Pulse Oximetry 95 02/21/25 02:16 Oxygen Delivery Method Room Air 02/21/25 02:16 Course Orders Ordered: ED Orders 02/21/25 02:54 UA Complete [Urinalysis and Microscopic] Stat Urine Culture Stat Discontinued Medications Cefuroxime Axetil (Cefuroxime 250 Mg Tablet) 500 mg PO NOW ONE Stop: 02/21/25 04:07 Lidocaine HCl (Lidocaine 2% (Glydo) 6 Ml Gel) 6 ml TOP NOW ONE Stop: 02/21/25 02:27 Last Admin: 02/21/25 02:44 Dose: 6 ml Documented By: LUANNE Vital Signs Vital signs: Vital Signs - 8 hr 02/21/25 02:16 Temperature 98.0 F Pulse Rate 79 Respiratory Rate 18 Blood Pressure 125/58 L Pulse Oximetry 95 Oxygen Delivery Method Room Air MDM - Male Genitourinary Lab Data Lab results narrative: Patient's urinalysis shows signs of infection Labs: Lab Results 02/21/25 Range/Units 02:54 Urine Color Yellow Urine Appearance Clear Urine pH 6.0 (4.5-8.0) Ur Specific [place] 1.010 (1.000-1.035) Urine Protein Negative (Negative) Urine Glucose (UA) Negative (Negative) g/dL Urine Ketones Negative (NEGATIVE) Urine Occult Blood 1+ H (Negative) Urine Nitrate Positive H (Negative) Urine Bilirubin Negative (NEGATIVE) Urine Urobilinogen 0.2 (0.2) E.U./dL Ur Leukocyte Esterase 2+ H (NEGATIVE) Urine RBC None seen (0-5/HPF) Urine WBC 10-30/hpf H (0-5/HPF) Ur Squamous Epith Cells 0-1 /hpf (0-5/HPF) Urine Bacteria Many (>30) H (None) Ur Culture Indicated? Specimen cultured Vol Urine Centrifuged 10ml (spun) MDM Narrative Medical decision making narrative: 84-year-old male with recent ED visit for urinary retention discharged with Martinez who is returning for ongoing urinary retention after removal of Martinez catheter several days ago. INITIAL EVALUATION AND PLAN: - Reinsert Martinez catheter. - Check urine for infection. - Referral to urologist for further evaluation and management. - Follow-up with urologist within a week. - Differential diagnosis includes but is not limited to: Urinary tract infection, urinary obstruction, hematuria causing bladder clot, BPH, medication side effect -initial bladder scan shows urine value of 570, patient unable to spontaneously void -will place Martinez catheter and leg bag in order to help with urinary obstruction and check for infection -patient will need to follow up outpatient with Urology for ongoing workup of the source of his urinary tract obstruction clinically the child BPH workup/procedure -urinalysis shows signs of infection we will discharge patient on antibiotic, 1st dose to be given here in the emergency department patient will be discharged with Martinez in place and Neurology follow up instructions Discharge Plan Departure Patient Disposition: Home Clinical Impression: Acute urinary retention, Urinary tract infection Instructions: DI for Urinary Retention in Men Prescriptions: New cefuroxime axetil 500 mg tablet 500 mg PO BID Qty: 14 0RF No Action amoxicillin-pot clavulanate 875-125 mg tablet 1 tab PO BID Qty: 20 0RF amoxicillin-pot clavulanate 875-125 mg tablet 1 tab PO BID Qty: 20 0RF Referrals: Yimi Van DO [Physician] - (Urinary retention, Martinez in place, UTI failed outpatient management for previous urinary retention and Flomax) Miscellaneous,Doctor, MD [Primary Care Provider] - Stand Alone Forms: Patient Portal/API/Survey
[2025-02-21] MEDS: LIDOCAINE 2% (GLYDO) 6 ML GEL TOP (02:44)
[2025-02-21 03:23] LABS: Appearance Urine UA CLEAR; Bilirubin Urine UA NEGATIVE (NEGATIVE); Color Urine UA YELLOW; Glucose Urine UA NEGATIVE (Negative); Ketones Urine UA NEGATIVE (NEGATIVE); Leukocyte Esterase Urine UA 2+ (NEGATIVE); Nitrite Urine UA POSITIVE (Negative); Occult Blood Urine UA 1+ (Negative); Protein Urine UA NEGATIVE (Negative); Urobilinogen Urine UA 0.2 E.U./dL (0.2)
[2025-02-21 03:33] LABS: Bacteria Urine Many (>30); Culture Indicated Urine Specimen Cultured; RBC Urine None Seen (0-5/HPF); Squamous Epithelial Cell Urine 0-1 /HPF (0-5/HPF); Urine Volume 10mL (spun); WBC Urine 10-30/HPF (0-5/HPF)
--- NOTE | 2025-02-21 03:55 | PC.NURSE ---
Leg bag applied to patient's catheter per patient request. states it's easier for him to use.
[2025-02-21] MEDS: cefUROXime 250 MG TABLET 500 MG PO (04:31)
[2025-02-21 04:32] VITALS: BP 106/59; PULSE 80; RESP 15; O2SAT 96
== END 2025-02-21 04:32 | disposition home or self-care (01) ==
PROVIDERS: Emergency Provider Emergency Medicine
DX: N39.0 Urinary tract infection, site not specified (principal); R33.8 Other retention of urine
CPT/HCPCS: 51798; 81001; 87086

== ENCOUNTER 2025-02-21 18:02 | Emergency (ER) | payer MEDICARE, OTHER, SELFPAY ==
[2025-02-21 18:20] VITALS: BP 136/63; PULSE 87; RESP 18; TEMP 36.7; O2SAT 96; BMI 22.1
--- NOTE | 2025-02-21 18:37 | PC.NURSE ---
Patient had caldwell placed this morning for urine retention. The bag was removed from the tubing and the tubing drained. The catheter was cleaned from the penis down and the balloon was retracted and urine began to flow a little bit from the catheter. The balloon was reinflated. The patient was bladder scanned. 3mls observed according to Bladder scanner.
--- NOTE | 2025-02-21 19:31 | PC.NURSE ---
This RN checks on patient's caldwell cath. It is flowing. Provider Skinny made aware.
--- NOTE | 2025-02-21 19:50 | ED_ITS ---
HPI - Recheck/Abnormal Lab/Rx General Chief Complaint: Recheck/Abnormal Lab/Rx Stated Complaint: catheter issue Time Seen by Provider: 02/21/25 19:50 Source: patient Mode of arrival: Ambulatory History of Present Illness HPI narrative: Patient 84-year-old male history of urinary retention had a Martinez catheter placed this morning had a she was with a draining this afternoon. Was put on cefdinir for UTI. Catheter now draining after nursing trouble shoot it must have been a kink in the tubing. He has no abdominal pain nausea vomiting back pain. Related Data Previous Rx's Medication Instructions Recorded amoxicillin 875 mg-potassium 1 tab PO BID #20 tabs 12/21/24 clavulanate 125 mg tablet amoxicillin 875 mg-potassium 1 tab PO BID #20 tabs 12/21/24 clavulanate 125 mg tablet cefuroxime axetil 500 mg tablet 500 mg PO BID #14 tabs 02/21/25 Allergies Allergy/AdvReac Type Severity Reaction Status Date / Time No Known Drug Allergies Allergy Verified 12/21/24 12:42 Patient History Medical History Fractures (~2014) Mumps Measles Chicken pox Tinnitus (~1999) Hearing loss (~2017) Colon polyps (~2004) Screening for prostate cancer Hyperlipidemia Atrial flutter by electrocardiogram Cataract (lens) fragments in eye following cataract surgery, bilateral (~2017) Surgical History Anesthesia Family History Mother Stroke Diabetes mellitus Social History household members: spouse Smoking Status: Never smoker Smoking Status: Never smoker alcohol intake frequency: holidays/special occasions only Exam Initial Vital Signs Initial Vital Signs: Vital Signs Temperature 98.1 F 02/21/25 18:20 Pulse Rate 87 02/21/25 18:20 Respiratory Rate 18 02/21/25 18:20 Blood Pressure 136/63 02/21/25 18:20 Pulse Oximetry 96 02/21/25 18:20 Oxygen Delivery Method Room Air 02/21/25 18:20 GENERAL: Alert well-appearing 84-year-old male CARDIOVASCULAR: peripheral pulses in tact, cap refill <2 sec RESPIRATORY: No respiratory distress, speaks in full sentences without difficulty ABDOMEN: Soft, nontender, no guarding or rebound Martinez catheter in place draining clear yellow urine EXTREMITIES: Normal range of motion, no clubbing or edema. Neurovascularly intact NEUROLOGICAL: Cranial nerves II through XII grossly intact. Normal gait and s peech. SKIN: Warm, dry, no petechiae, no rashes or lesions. Course Vital Signs Vital signs: Vital Signs - 8 hr 02/21/25 18:20 Temperature 98.1 F Pulse Rate 87 Respiratory Rate 18 Blood Pressure 136/63 Pulse Oximetry 96 Oxygen Delivery Method Room Air MDM - Recheck/Abnormal Lab/Rx MDM Narrative Medical decision making narrative: Patient 84-year-old male history of urinary retention was here early this morning had Martinez catheter placed placed on antibiotics for UTI. Tubing was kinked. It is draining easily now did not need to be replaced. At this time symptoms completely resolve no need for further workup or evaluation Discharge Plan Departure Patient Disposition: Home Clinical Impression: Complication of Martinez catheter Instructions: How to Care for Your Martinez Catheter -- Male Activity Restrictions/Additional Instructions: *You have been diagnosed with Martinez catheter problem *What to do: *Continue to take medications as directed Please seed cone picker and take your antibiotic as previously prescribed earlier today *Follow up with your primary care provider in 2-3 days or call [phone] Follow up with Urology *Return to ER if you should have Martinez catheter not draining gross blood abdominal pain fever or any new, worsening or concerning symptoms Prescriptions: No Action amoxicillin-pot clavulanate 875-125 mg tablet 1 tab PO BID Qty: 20 0RF amoxicillin-pot clavulanate 875-125 mg tablet 1 tab PO BID Qty: 20 0RF cefuroxime axetil 500 mg tablet 500 mg PO BID Qty: 14 0RF Referrals: Miscellaneous,Doctor, [Primary Care Provider] - Stand Alone Forms: Patient Portal/API/Survey
== END 2025-02-21 20:07 | disposition home or self-care (01) ==
PROVIDERS: Emergency Provider Emergency Medicine
DX: T83.9XXA Unspecified complication of genitourinary prosthetic device, implant and graft, initial encounter (principal)
CPT/HCPCS: 51798; 81001; 87077; 87086; 99282; 99284

== ENCOUNTER 2025-02-23 17:01 | Emergency (ER) | payer MEDICARE, OTHER, SELFPAY ==
[2025-02-23 17:06] VITALS: BP 138/65; PULSE 76; RESP 18; TEMP 36.7; O2SAT 98; BMI 22.1
--- NOTE | 2025-02-23 18:22 | ED_ITS ---
HPI - Male Genitourinary General Chief complaint: Urogenital-Male Stated complaint: urinary issue Time Seen by Provider: 02/23/25 18:17 Source: patient Mode of arrival: Ambulatory History of Present Illness HPI Narrative: This is an 84-year-old male with recent history of urinary retention and Martinez catheter in place presenting to the ER with concern for Martinez catheter problem. After patient was seen in the emergency department a few days ago for this same issue he states his problems with his catheter have not resolved. He is still having urine that remains in the catheter tubing and is not draining into the catheter bag. He denies any new symptoms such as abdominal pain, fevers chills or other. He has a plan to see Urology on Wednesday in 4 days' time. Related Data Previous Rx's Medication Instructions Recorded amoxicillin 875 mg-potassium 1 tab PO BID #20 tabs 12/21/24 clavulanate 125 mg tablet amoxicillin 875 mg-potassium 1 tab PO BID #20 tabs 12/21/24 clavulanate 125 mg tablet cefuroxime axetil 500 mg tablet 500 mg PO BID #14 tabs 02/21/25 Allergies Allergy/AdvReac Type Severity Reaction Status Date / Time No Known Drug Allergies Allergy Verified 12/21/24 12:42 Review of Systems Review of Systems Narrative: See HPI Patient History Medical History Fractures (~2014) Mumps Measles Chicken pox Tinnitus (~2000) Hearing loss (~2018) Colon polyps (~2004) Screening for prostate cancer Hyperlipidemia Atrial flutter by electrocardiogram Cataract (lens) fragments in eye following cataract surgery, bilateral (~2017) Surgical History Anesthesia Family History Mother Stroke Diabetes mellitus Social History household members: spouse Smoking Status: Never smoker Smoking Status: Never smoker alcohol intake frequency: holidays/special occasions only Exam Narrative Exam Narrative: GENERAL: [84] year old patient appears stated age. Well-developed patient, in mild distress. Slightly hard of hearing, generally well-appearing. Martinez catheter in place with bag at the right ankle draining well after adjustments made by RN. HEAD: Atraumatic. Normocephalic. EYES: Pupils equal round and reactive. Extraocular motions intact. No scleral icterus. No injection or drainage. ENT: Nose without bleeding, purulent drainage. Airway patent. NECK: Trachea midline. CARDIOVASCULAR: Regular rate and rhythm without murmurs, gallops, or rubs. RESPIRATORY: Clear to auscultation. Breath sounds equal bilaterally. No wheezes, rales, or rhonchi. GASTROINTESTINAL: Abdomen soft, non-tender, nondistended. EXTREMITIES: No edema or joint tenderness. NEURO: AOx3. SKIN: No rash or erythema of visible areas Initial Vital Signs Initial Vital Signs: Vital Signs Temperature 98.1 F 02/23/25 17:06 Pulse Rate 76 02/23/25 17:06 Respiratory Rate 18 02/23/25 17:06 Blood Pressure 138/65 02/23/25 17:06 Pulse Oximetry 98 02/23/25 17:06 Oxygen Delivery Method Room Air 02/23/25 17:06 Course Vital Signs Vital signs: Vital Signs - 8 hr 02/23/25 17:06 02/23/25 19:11 Temperature 98.1 F Pulse Rate 76 70 Respiratory Rate 18 18 Blood Pressure 138/65 128/60 Pulse Oximetry 98 100 Oxygen Delivery Method Room Air Room Air MDM - Male Genitourinary Differential Diagnosis Differential diagnosis: Likely other (Martinez catheter problem, urinary retention, patient education) MDM Narrative Medical decision making narrative: This is an 84-year-old male with multiple recent ER visits due to urinary retention and or catheter problems. Reviewed the patient's chart. He is due to see Urology next week again as this is now his 2nd recent bout of urinary retention requiring Martinez catheter placement. Presented to the ER today with concern for Martinez catheter not draining well. RN provided education regarding placement of the catheter and use of the Martinez catheter bag. Noting that it was folded over at the top of the bag and thus dis-allowing the tube to drain into the bag appropriately. She also adjusted the length of the catheter tubing and made it shorter. Patient was very happy with these results and it was noted to be draining well. He had no other concerns today. Labs were not obtained and imaging was not obtained. He will follow up with Urology as planned on Wednesday he is advised to leave the catheter in place until that time. Return precautions provided, follow-up plan discussed, all questions answered. Discharge Plan Departure Patient Disposition: Home Clinical Impression: Problem with Martinez catheter Qualifiers: Encounter type: initial encounter Qualified Code(s): T83.9XXA - Unspecified complication of genitourinary prosthetic device, implant and graft, initial encounter Activity Restrictions/Additional Instructions: *You have been diagnosed with [Martinez catheter problem] *What to do: *Please continue to take your regular medications as directed. [ ] New medication prescriptions sent to your pharmacy: [ ] [ ] New medication written as a paper prescription [X ] No new medications given *Please follow up with your primary care provider in 2-3 days, call for an appointment. Let them know you were seen in the Emergency Department and that we ask that you be seen in follow up. We will electronically transmit a record of today's note if your PCP is in our system. You came into the ER today concerned that your Martinez catheter is not draining appropriately. The nurse was able to make some adjustments for you and explain how it works a little better and it was draining well now. You should keep it in until your appointment on Wednesday with Urology. If you develop new or concerning symptoms please make sure you seek re-evaluation it was okay to come back to the emergency department if needed. Otherwise I hope things go well for you over the weekend and good luck with your follow up appointment Wednesday. *If you do not have a primary care provider please contact the [facility] Resource line at [phone]. They will ask some questions about your medical history and help get you set up with a doctor in the community. *Return to Emergency Department if you should have any new, worsening or concerning symptoms, such as [fever greater than 101 F, shaking chills, worsening pain, persistent vomiting or other bothersome symptoms] Prescriptions: No Action amoxicillin-pot clavulanate 875-125 mg tablet 1 tab PO BID Qty: 20 0RF amoxicillin-pot clavulanate 875-125 mg tablet 1 tab PO BID Qty: 20 0RF cefuroxime axetil 500 mg tablet 500 mg PO BID Qty: 14 0RF Referrals: Miscellaneous,Doctor, MD [Primary Care Provider] - Stand Alone Forms: Patient Portal/API/Survey
[2025-02-23 19:11] VITALS: BP 128/60; PULSE 70; RESP 18; O2SAT 100
== END 2025-02-23 19:12 | disposition home or self-care (01) ==
PROVIDERS: Emergency Provider Student in an Organized Health Care Education/Training Program
DX: T83.9XXA Unspecified complication of genitourinary prosthetic device, implant and graft, initial encounter (principal)
CPT/HCPCS: 99281

== ENCOUNTER → 2025-03-02 14:30 | Outpatient (CLI) | payer MEDICARE, OTHER, SELFPAY | PROVIDERS: Referring Provider Physician Assistant; Visit Provider Physician Assistant | DX: N40.1 Benign prostatic hyperplasia with lower urinary tract symptoms (principal); R33.8 Other retention of urine | CPT/HCPCS: 36415; 84153 ==

== ENCOUNTER 2025-03-02 18:05 | Emergency (ER) | payer MEDICARE, OTHER, SELFPAY ==
[2025-03-02 18:10] VITALS: RESP 20; TEMP 36.6; O2SAT 100; BMI 22.1
--- NOTE | 2025-03-02 18:41 | DI.RAD.S_ITS ---
PROCEDURE: XR ANKLE RT 2V INDICATIONS: dog bite TECHNIQUE: 3 views of the ankle were acquired. COMPARISON: [facility], CR, XR ANKLE RT MIN 3V, 10/26/2019, 13:05. FINDINGS: No acute fracture or dislocation. The joint spaces are preserved. Subcutaneous emphysema along the posterior calf musculature. No radiopaque foreign object in the field of view. IMPRESSION: Subcutaneous emphysema without radiopaque foreign object at the posterior calf/ankle. Dictated by: Yazan Duran M.D. on 03/02/2025 at 19:37 Approved by: Yazan Duran M.D. on 03/02/2025 at 19:38
--- NOTE | 2025-03-02 18:42 | DI.RAD.S_ITS ---
PROCEDURE: XR FEMUR LT MIN 2V INDICATIONS: dog bite TECHNIQUE: 2 views of the femur were acquired. COMPARISON: None. FINDINGS: Bones: No fractures or dislocations. No suspicious bony lesions. Diffuse osseous demineralization. Soft tissues: No suspicious soft tissue calcifications or masses. Vascular calcifications. No radiopaque foreign object in the field of view. IMPRESSION: No acute fracture or dislocation or radiopaque foreign object. Dictated by: Yazan Duran M.D. on 03/02/2025 at 19:38 Approved by: Yazan Duran M.D. on 03/02/2025 at 19:39
--- NOTE | 2025-03-02 18:51 | PC.NURSE ---
Pt's pants soiled sure to dog bite puncturing pt's catheter leg bag. Pt given new leg bag, paper scrub pants and right ankle wounds dressed with non-stick gauze, kerlix and coban.
[2025-03-02] MEDS: IBUPROFEN 400 MG TABLET PO (21:33)
[2025-03-02 21:34] VITALS: BP 128/60; PULSE 74; RESP 17; TEMP 36.7; O2SAT 99
--- NOTE | 2025-03-02 22:37 | PC.NURSE ---
2135- Wounds to L leg and R arm oozing blood, wounds dressed. Pt medicated for pain with ibuprofen.
[2025-03-03] VITALS (13 sets, daily range): BP systolic 125–151; BP diastolic 58–75; PULSE 70–81; RESP 16–18; O2SAT 94–100
--- NOTE | 2025-03-03 00:23 | PC.NURSE ---
wounds to legs and right arm dressed at triage, dressing not removed at this time will wait until doctor comes in to evaluate
--- NOTE | 2025-03-03 00:40 | ED.ANIMALBIT ---
HPI - Animal Bite General Chief Complaint: Animal Bite Stated Complaint: two medium dogs bit both legs, crotch and R arm Time Seen by Provider: 03/03/25 00:38 Source: patient, RN notes reviewed and old records reviewed Mode of arrival: Ambulatory Limitations: no limitations History of Present Illness HPI narrative: 84-year-old male with history of urinary retention presents with complaint of dog bites to his extremities. Patient states he was at home his dog was in the backyard he went to bring it in the neighbor's dogs had gotten out and he was picked up his dog as it was crying and trying to get into the house the 2 dogs attacked him biting him on his legs and arm and buttock region. Patient states that he fell down was able to get himself back up and protect himself. The stone and plate preparer apprentice of the dogs was present. They believe the dogs were immunized for rabies. Transportation Broker states that they are going to get rid of the dogs. Patient family note there sometimes in and out through a doggie door to enclose location but do not normally run the yd. Patient denies hitting his head or loss of consciousness. Has multiple abrasions and puncture wounds from the dog bites. Plans to fill out the dog bite form tomorrow. Does not think his tetanus has been updated recently. No known drug allergies. Patient had ibuprofen earlier from the triage nurse which has been helpful but is still uncomfortable. Patient notes that his [place] catheter was also bitten in leaked the bag was replaced here with nursing staff. Related Data Previous Rx's Medication Instructions Recorded amoxicillin 875 mg-potassium 1 tab PO BID #20 tabs 12/21/24 clavulanate 125 mg tablet amoxicillin 875 mg-potassium 1 tab PO BID #20 tabs 12/21/24 clavulanate 125 mg tablet cefuroxime axetil 500 mg tablet 500 mg PO BID #14 tabs 02/21/25 amoxicillin 875 mg-potassium 1 tab PO BID #20 tabs 03/03/25 clavulanate 125 mg tablet hydrocodone 5 mg-acetaminophen 325 1 tab PO Q6H PRN pain #10 tabs 03/03/25 mg tablet Allergies Allergy/AdvReac Type Severity Reaction Status Date / Time No Known Drug Allergies Allergy Verified 12/21/24 12:42 Review of Systems Review of Systems ROS Unobtainable: All systems reviewed & are unremarkable except as noted in HPI and below Patient History Medical History Fractures (~2014) Mumps Measles Chicken pox Tinnitus (~1999) Hearing loss (~2017) Colon polyps (~2003) Screening for prostate cancer Hyperlipidemia Atrial flutter by electrocardiogram Cataract (lens) fragments in eye following cataract surgery, bilateral (~2018) Surgical History Anesthesia Family History Mother Stroke Diabetes mellitus Social History household members: spouse Smoking Status: Never smoker Smoking Status: Never smoker alcohol intake frequency: holidays/special occasions only Exam Narrative Exam Narrative: GENERAL: Alert and oriented x three, male in mild distress HEENT: Head normocephalic, atraumatic, EOMI, pupils reactive, face symmetric, moist mucous membranes NECK: Supple, full range of motion CARDIOVASCULAR: Regular rate and rhythm without murmurs, rubs or gallops. RESPIRATORY: Breath sounds equal bilaterally, no wheezes rales or rhonchi. ABDOMEN: Soft, nontender. Normoactive bowel sounds all 4 quadrants. No guarding or rebound, rigidity, no mass : No CVA tenderness EXTREMITIES: Normal range of motion, no clubbing or edema. Neurovascularly intact. Patient has multiple superficial abrasions and 3 skin tears of the right forearm, the left thigh patient has multiple abrasions and fairly superficial puncture wounds consistent with a bite, he has a longer laceration that is about a cm and a half with a little bit of subcutaneous exposure in the distal posterior thigh just superior to the posterior knee. Patient has abrasions and puncture wounds consistent with bite on the inner thigh. On the lower calf patient has 2 lacerations medial side appears little bit deeper with some subcutaneous exposure, lateral side of the calf has a skin tear and laceration as well. The left leg/thigh has moved multiple superficial abrasions and punctures but none requiring laceration repair. Patient is neurovascularly intact. Good range of motion throughout. Buttocks NEUROLOGICAL: Cranial nerves II through XII grossly intact. Moving all extremities SKIN: Warm, dry, no petechiae, no rashes or lesions otherwise noted. Initial Vital Signs Initial Vital Signs: Vital Signs Temperature 98 F 03/02/25 18:10 Respiratory Rate 20 03/02/25 18:10 Pulse Oximetry 100 03/02/25 18:10 Oxygen Delivery Method Room Air 03/02/25 18:10 Procedures Laceration Repair Laceration 1: Site: lower extremity (Posterior thigh) Side (If applicable): right Size (cm): 1.5 Description: linear, irregular and clean Depth: simple, single layer Local Anesthetic: lidocaine 2% and with epi Amount of anesthesia used (mL): 5 Pre-repair: wound explored, irrigated extensively and deep structures intact Skin layer closed with: nylon Skin layer suture size: 4-0 Number of sutures: 3 Technique: simple, interrupted Laceration 2: Site: lower extremity (Right lateral calf) Side (If applicable): right Size (cm): 1 Description: flap and irregular Depth: simple, single layer Local Anesthetic: lidocaine 2% and with epi Amount of anesthesia used (mL): 5 Pre-repair: wound explored, irrigated extensively and deep structures intact Skin layer closed with: nylon Skin layer suture size: 4-0 Number of sutures: 3 Technique: simple, interrupted Laceration 3: Site: lower extremity (Right medial calf) Side (If applicable): right Size (cm): 2.1 Description: linear, flap (V-shaped) and irregular Depth: involves muscle layer Local Anesthetic: lidocaine 2% and with epi Amount of anesthesia used (mL): 8 Pre-repair: wound explored, irrigated extensively and deep structures intact (puncture wound but no tendon involvement appreciated) Skin layer closed with: nylon Skin layer suture size: 4-0 Number of sutures: 9 Technique: simple, interrupted Course Orders Ordered: Discontinued Medications Hydrocodone Bitart/Acetaminophen (Hydrocodone/Acet 5/325 Tablet) 1 tab PO NOW ONE Stop: 03/03/25 01:01 Last Admin: 03/03/25 01:10 Dose: 1 tab Documented By: MARSHALL Amoxicillin/Clavulanate Potassium (Amoxicillin/Clav 875/125 Mg) 1 tab PO NOW ONE Stop: 03/03/25 01:01 Last Admin: 03/03/25 01:10 Dose: 1 tab Documented By: MARSHALL Bacitracin (Bacitracin 28 Gm Oint) 10 applic TOP NOW ONE Stop: 03/03/25 01:34 Last Admin: 03/03/25 01:40 Dose: Not Given Documented By: MARSHALL Bacitracin (Bacitracin 28 Gm Oint) 1 applic TOP NOW ONE Stop: 03/03/25 01:37 Bacitracin (Bacitracin 28 Gm Oint) 1 applic TOP NOW ONE Stop: 03/03/25 01:39 Last Admin: 03/03/25 01:41 Dose: Not Given Documented By: MARSHALL Bacitracin (Bacitracin 28 Gm Oint) 30 applic TOP NOW ONE Stop: 03/03/25 03:16 Last Admin: 03/03/25 03:26 Dose: 30 applic Documented By: MARSHALL Diphtheria/Tetanus/Acell Pertussis (Tet,Diph,Pertuss(Acell),Vac/Pf 0.5 Ml Syringe) 0.5 ml IM .ONCE ONE Stop: 03/03/25 01:02 Last Admin: 03/03/25 01:10 Dose: 0.5 ml Documented By: MARSHALL Ibuprofen (Ibuprofen 400 Mg Tablet) 400 mg PO NOW ONE Stop: 03/02/25 21:25 Last Admin: 03/02/25 21:33 Dose: 400 mg Documented By: ALYSON Vital Signs Vital signs: Vital Signs - 8 hr 03/02/25 21:34 03/03/25 00:21 03/03/25 00:21 Temperature 98.0 F Pulse Rate 74 81 Respiratory Rate 17 Blood Pressure 128/60 151/66 H Pulse Oximetry 99 97 Oxygen Delivery Method Room Air 03/03/25 00:22 03/03/25 00:28 03/03/25 00:30 Temperature Pulse Rate 74 71 Respiratory Rate 16 Blood Pressure 151/66 H 125/58 L Pulse Oximetry 97 96 Oxygen Delivery Method Room Air 03/03/25 00:37 03/03/25 00:44 03/03/25 01:01 Temperature Pulse Rate 71 Respiratory Rate 18 Blood Pressure 146/70 H Pulse Oximetry 96 94 Oxygen Delivery Method 03/03/25 01:30 Temperature Pulse Rate Respiratory Rate Blood Pressure 143/67 H Pulse Oximetry Oxygen Delivery Method MDM - Animal Bite MDM Narrative Medical decision making narrative: Right ankle x-ray shows subcutaneous emphysema without radiopaque foreign object of the posterior calf ankle. Left femur x-ray shows no acute fracture dislocation or radiopaque foreign object. Patient has multiple skin tears, superficial puncture wounds and abrasions along with ecchymosis consistent with bites. Patient does have 3 areas 1 is posterior knee does not show any tendon involvement but does not appear to require suture as well as lateral and medial calf on the right lower extremity. These were repaired. We did discuss the Ob increased risk for infection but they are quite large and gap quite a bit. Posterior thigh had 3 sutures, 4-0 nylon Lateral right calf had 3 sutures, 4-0 nylon Medial right calf had 9 sutures, 4-0 nylon Patient's wounds attempted to loosely approximate but there was some tissue loss so required to be pulled together somewhat. Patient was treated with Augmentin, tetanus was updated. Wounds were cleansed and irrigated by myself as well as nursing. Patient had nonstick with bacitracin applied. Discharge Plan Departure Patient Disposition: Home Clinical Impression: Dog bite of multiple sites Instructions: DI for Dog Bite Activity Restrictions/Additional Instructions: Follow up for recheck. Please keep a close eye on your injuries for any signs of infection. Your tetanus was updated today You have 9 sutures, in our medial calf, 3 sutures in your lateral calf and 3 sutures in your posterior thigh. You will need to follow up to have sutures removed in 7-10 days. Take oral antibiotics until completed. Can take acetaminophen up to a 1000 mg every 6 hours and/or ibuprofen up to 600 mg every 6 hours as needed for pain. If in adequate you can take [place] 1 tablet every 6 hours as needed. This medication does have acetaminophen so take instead of Tylenol. This medication can make you sleepy do not drive, perform hazardous activities or make any major decisions while taking it. This medication will make you constipated please take a stool softener once to twice daily until stools are soft and regular. Prescription sent to [facility] in [place]. Wound Care: Keep wound(s) clean and dry. Wash daily with soap and water only. Do not use over the counter products (alcohol or peroxide)on the wounds unless instructed by a physician. If wound condition worsens (increased/expanding redness, developing fluid blisters, or worsening pain), either contact your doctor for an urgent re-assessment , or return to the Emergency Department. Return if fever greater than 100.4 Fahrenheit, increased swelling, increasing pain or worsening symptoms such as increased discharge or spreading redness. Prescriptions: New amoxicillin-pot clavulanate 875-125 mg tablet 1 tab PO BID Qty: 20 0RF hydrocodone-acetaminophen 5-325 mg tablet 1 tab PO Q6H PRN (Reason: pain) Qty: 10 0RF No Action amoxicillin-pot clavulanate 875-125 mg tablet 1 tab PO BID Qty: 20 0RF amoxicillin-pot clavulanate 875-125 mg tablet 1 tab PO BID Qty: 20 0RF cefuroxime axetil 500 mg tablet 500 mg PO BID Qty: 14 0RF Referrals: Miscellaneous,Doctor, MD [Primary Care Provider] - Stand Alone Forms: Patient Portal/API/Survey
[2025-03-03] MEDS: AMOXICILLIN/CLAV 875/125 MG 1 TAB PO (01:10)
[2025-03-03] MEDS: TET,DIPH,PERTUSS(ACELL),VAC/PF 0.5 ML SYRINGE IM (01:10)
[2025-03-03] MEDS: HYDROCODONE/ACET 5/325 TABLET 1 TAB PO (01:10)
--- NOTE | 2025-03-03 01:30 | PC.NURSE ---
abrasions to left upper thigh, left outer calf, right ankle, right calf, right inner thigh and skin tears to right forearm, and puncture wound to ankle cleaned and scrubbed with saline, pt tolerated procedure well
[2025-03-03] MEDS: BACITRACIN 28 GM OINT 30 APPLIC TOP (03:26)
--- NOTE | 2025-03-03 03:50 | PC.NURSE ---
bacitracin applied to all wounds and wounds covered with telfa pads and wrapped with coban
== END 2025-03-03 03:54 | disposition home or self-care (01) ==
PROVIDERS: Emergency Provider Emergency Medicine
DX: S71.151A Open bite, right thigh, initial encounter (principal); S81.851A Open bite, right lower leg, initial encounter; S50.811A Abrasion of right forearm, initial encounter; W54.0XXA Bitten by dog, initial encounter; N40.1 Benign prostatic hyperplasia with lower urinary tract symptoms; R33.8 Other retention of urine; Z23 Encounter for immunization
CPT/HCPCS: 12002; 36415; 73552; 73600; 84153; 90471; 99283; 99284; 90715

== ENCOUNTER → 2025-05-18 15:18 | Outpatient (CLI) | payer MEDICARE, OTHER, SELFPAY ==
[2025-05-18 17:42] LABS: Prostate Specific Antigen 8.15 ng/mL (0.10-4.00)
== END ==
PROVIDERS: Referring Provider Urology; Visit Provider Urology
DX: N40.1 Benign prostatic hyperplasia with lower urinary tract symptoms (principal)
CPT/HCPCS: 36415; 84153

== ENCOUNTER → 2025-06-04 11:00 | Outpatient (CLI) | payer MEDICARE, OTHER, SELFPAY ==
--- NOTE | 2025-06-04 11:01 | DI.RAD.S_ITS ---
PROCEDURE: XR TOE RT MIN 2V INDICATIONS: r/o OA, Fx 5th MP joint TECHNIQUE: 3 views of the 5th toe(s) acquired. COMPARISON: None. FINDINGS: Bones: Mildly displaced fracture involving the 5th proximal phalanx distal shaft.. No suspicious bony lesions. Soft tissues: No suspicious soft tissue densities. IMPRESSION: Mildly displaced fracture involving the 5th proximal phalanx distal shaft. Dictated by: Bob Zeng M.D. on 06/04/2025 at 11:57 Approved by: Bob Zeng M.D. on 06/04/2025 at 11:59
== END ==
PROVIDERS: Referring Provider Chiropractor; Visit Provider Chiropractor
DX: S97.101A Crushing injury of unspecified right toe(s), initial encounter (principal); S92.531A Displaced fracture of distal phalanx of right lesser toe(s), initial encounter for closed fracture; X58.XXXA Exposure to other specified factors, initial encounter
CPT/HCPCS: 73660